=== PATIENT | female | born 1985 | race Caucasian/White ===

== ENCOUNTER 2019-08-31 20:24 | Emergency (ER) | payer SELFPAY ==
[2019-08-31 20:53] VITALS: BP 119/82; PULSE 79; RESP 16; TEMP 36.7; O2SAT 96; BMI 45.7
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
[2019-08-31 22:59] VITALS: BP 125/73; PULSE 74; RESP 16; O2SAT 93
[2019-08-31] MEDS: orphenadrine 30 mg/mL Inj 2 mL 60 MG IM (23:52)
[2019-08-31] MEDS: ketorolac 30 mg/mL INJ IM (23:52)
[2019-09-01 00:40] VITALS: BP 129/86; PULSE 82; RESP 14; O2SAT 94
[2019-09-01] MEDS: metformin 500 mg Tablet PO (00:57)
[2019-09-01 00:58] VITALS: BP 122/69; PULSE 74; RESP 14; O2SAT 94
[2019-09-01] MEDS: lisinopril 10 mg Tablet PO (00:58)
== END 2019-09-01 01:00 | disposition home or self-care (01) ==
PROVIDERS: Emergency Provider Physician Assistant
DX: M54.5 Low back pain (principal); Z87.891 Personal history of nicotine dependence
CPT/HCPCS: 96372; 99281; J1885; J2360

== ENCOUNTER 2020-04-01 22:19 | Emergency (ER) | payer SELFPAY ==
[2020-04-01 22:29] VITALS: RESP 14; TEMP 36.9; BMI 46.0
--- NOTE | 2020-04-01 23:37 | ED_ITS ---
HPI - Skin/Abscess/Foreign Bdy General: Chief complaint: Skin/Abscess/Foreign Body Stated complaint: spider bite Time Seen by Provider: 04/01/20 23:31 Source: patient Mode of arrival: ambulatory Limitations: no limitations History of Present Illness: HPI narrative: Patient comes in for a lesion to the right central buttocks. Patient reports some increase in redness and tenderness to the area. Patient appears well. Patient appears in no acute distress. Review of Systems General: Reports: 10 or more systems reviewed and unremarkable except in HPI and below Skin/Breast: Reports: erythema PFSH ED PFSH: Medical History (Updated 04/01/20 @ 23:43 by MARY Banda) Chronic back pain Social History Smoking and tobacco status: former smoker Female Reproductive History: Date of last menstrual period: 08/18/19 Physical Exam Const: COMMON NORMALS: no acute distress and patient oriented x3 GENERAL APPEARANCE: cooperative HENMT: COMMON NORMALS: normocephalic and Normal external nose present HEAD & SCALP: normal to inspection and normocephalic NOSE: Normal external nose present Eye: GENERAL EYE: appearance normal, both eyes and all related structures Neck/C-Spine: COMMON NORMALS: full ROM Lymph: LYMPHATIC: no lymphadenopathy noted Chest: COMMONS NORMALS: normal inspection of the chest Resp: COMMON NORMALS: normal respiratory effort EFFORT & INSPECTION: Yes a ble to speak in complete sentences Cardio: COMMON NORMALS: regular rate and regular rhythm RATE: regular rate RHYTHM: regular rhythm GI: COMMON NORMALS: non-tender Back/Pelvis: COMMON NORMALS: thoracic and lumbar spine normal to inspection Extremity: COMMON NORMALS: normal to inspection Neuro: COMMON NORMALS: patient oriented x3 and moves all extremities Psych: COMMON NORMALS: mental status grossly normal and cooperative Skin: NARRATIVE SKIN EXAM: Small drying lesion to the right central buttock, 4 cm area of redness around the lesion. No induration or fluctuance. Course Vital Signs: Vital signs: Vital Signs Temperature 98.4 F 04/01/20 22:29 Respiratory Rate 14 04/01/20 22:29 MDM - Skin/Abscess/Foreign Bdy MDM Narrative: Medical decision making narrative: Patient presents today with a lesion to the right central buttocks. There is a area of redness with a central lesion on the right buttock. No fluctuance or significant induration is noted. Tenderness is noted to palpation. Differential diagnosis includes but not limited to cellulitis, abscess, local reaction to insect bite. Reviewed exam with patient recommended treatment for cellulitis. Patient was started on Bactrim 1 tablet twice a day for 10 days. Reviewed post visit care and need for follow-up. Discharge Plan Discharge Patient Disposition: Home Clinical Impression: Cellulitis Qualifiers: Site of cellulitis: buttock Qualified Code(s): L03.317 - Cellulitis of buttock Condition: Stable Prescriptions: New Bactrim DS 800-160 mg tablet 1 tab PO DAILY 10 Days Qty: 20 RF: 0 No Action metformin 500 mg tablet 500 mg PO BID RF: 0 lisinopril 10 mg tablet 10 mg PO DAILY RF: 0 Robaxin-750 750 mg tablet 750 mg PO Q6H PRN (Reason: back pain) Qty: 30 RF: 0 ibuprofen 600 mg tablet 600 mg PO Q8H Qty: 30 RF: 0 Discharge Orders: Discharge Order (Routine); Ordered 04/01/20 Ordered By: Juan Moralez Discharge Diet: Usual diet Discharge Activity: Increase activity as tolerated Patient Instructions: Cellulitis (ED) Activity Restrictions/Additional Instructions: Drink plenty of water with medication. Use Tylenol or ibuprofen for pain. Follow-up with primary care in 1 week. Return to the emergency department for new concerns. Coding Level of Care Code ED Hadoop Engineer for [facility] Deluca Exam Comprehensive
[2020-04-01 23:44] VITALS: BP 125/83; PULSE 81; RESP 15; O2SAT 95
[2020-04-01] MEDS: sulfamethoxazole-trimeth DS 160-800 mg Tablet 1 TAB PO (23:49)
[2020-04-01 23:57] VITALS: BP 130/68; PULSE 72; RESP 16; O2SAT 95
== END 2020-04-02 00:01 | disposition home or self-care (01) ==
PROVIDERS: Emergency Provider Nurse Practitioner Family
DX: L03.317 Cellulitis of buttock (principal); Z87.891 Personal history of nicotine dependence
CPT/HCPCS: 12345; 99281; 99283

== ENCOUNTER → 2020-05-18 15:16 | Outpatient (BNVA) | payer OTHER, SELFPAY | PROVIDERS: Visit Provider Nurse Practitioner Family | DX: Z20.828 Contact with and (suspected) exposure to other viral communicable diseases (principal); J06.9 Acute upper respiratory infection, unspecified | CPT/HCPCS: 87635 ==

== ENCOUNTER 2020-11-09 01:16 | Emergency (ER) | payer SELFPAY ==
[2020-11-09 01:24] VITALS: BP 120/79; PULSE 89; RESP 16; TEMP 36.3; O2SAT 96; BMI 45.3
--- NOTE | 2020-11-09 01:29 | ED_ITS ---
HPI - Extremity Problem General: Chief complaint: Extremity Problem,Nontraumatic Stated complaint: pain/numbness left hand Time Seen by Provider: 11/09/20 01:28 History of Present Illness: HPI Narrative: Patient is a 35-year-old female comes to the ED with left hand pain and numbness. She reports a history of carpal tunnel. Symptoms started approximately 3 days ago. She does have a wrist brace that she just started wearing today to help with symptoms. Pain in hand rated a 7 out of 10. She reports doing a lot of repetitive hand movements at work. Denies any acute injury to cause pain in left hand. Associated symptoms: Deny chest pain, fever(s) or rash Review of Systems Const: Denies: fever(s), chills or fatigue Eyes: Denies: change in vision or eye discomfort ENMT: Denies: throat pain, odynophagia, nasal discharge or nasal congestion Card: Denies: chest pain, palpitations, edema, swelling of feet/ankles, dyspnea on exertion or orthopnea Resp: Denies: dyspnea, productive cough or non-productive cough GI: Denies: abdominal pain, nausea, vomiting, diarrhea, constipation or hematochezia : Denies: flank pain, dysuria or hematuria Musc: Reports: extremity pain (Left hand pain and numbness.); Denies: neck pain, back pain or extremity swelling Skin/Breast: Denies: rash or new lesions Neuro: Denies: headache(s), numbness in extremities or weakness in extremities PFS ED PFSH: Medical History Chronic back pain Social History Smoking and tobacco status: former smoker Female Reproductive History: Date of last menstrual period: 08/18/19 Physical Exam Const: COMMON NORMALS: no acute distress, patient oriented x3, healthy appearing and alert GENERAL APPEARANCE: cooperative and comfortable NUTRITIONAL APPEARANCE: obese HENMT: COMMON NORMALS: normocephalic HEAD & SCALP: normocephalic MOUTH: Normal oral and palatal mucosa present THROAT: posterior oropharynx normal and uvula midline Neck/C-Spine: COMMON NORMALS: supple GENERAL: Yes normal visual inspection Resp: COMMON NORMALS: normal respiratory effort, No retractions, No use of accessory muscles and clear to auscultation bilaterally AUSCULTATION: clear to auscultation bilaterally Cardio: COMMON NORMALS: regular rate, regular rhythm, S1 normal heart sound present, S2 normal heart sound present, No gallops present (Cardio), No clicks present (Cardio), No murmurs present (Cardio) and Peripheral pulses 2+ throughout RATE: regular rate RHYTHM: regular rhythm HEART SOUNDS: S1 normal heart sound present and S2 normal heart sound present PERIPHERAL PULSES: Peripheral pulses 2+ throughout GI: COMMON NORMALS: Normal to inspection, nondistended, normoactive bowel sounds present, Soft to palpation, non-tender and no masses PALPATION: Yes Soft to palpation : COMMON NORMALS: Yes no CVA tenderness BLADDER/KIDNEY EXAM: Yes no CVA tenderness Back/Pelvis: COMMON NORMALS: no CVA tenderness Extremity: GENERAL: Yes normal exam except as noted LEFT UPPER EXTREMITY: Yes wrist Left wrist: Yes special tests Left wrist special tests: Tinel's test: Positive and Phalen's test: Positive Neuro: COMMON NORMALS: patient oriented x3 and moves all extremities SENSORIUM/ORIENTATION: Yes alert Skin: GENERAL SKIN EXAM: dry skin Course Vital Signs: Vital signs: Vital Signs Temperature 97.3 F L 11/09/20 01:24 Pulse Rate 89 11/09/20 01:24 Respiratory Rate 16 11/09/20 01:24 Blood Pressure 120/79 11/09/20 01:24 Pulse Oximetry 96 11/09/20 01:24 MDM - Extremity (Nontraumatic) MDM Narrative: Medical decision making narrative: Patient is a 35-year-old female comes to the ED with left hand pain numbness. Patient has history of carpal tunnel syndrome and left hand. Exam findings remarkable for positive Phalen's and positive Tinel's test of left hand. Patient diagnosed with carpal tunnel left hand pain discharged home with a prescription for ibuprofen 800 mg. Return to ED precautions given. Follow-up with PCP in 7 to 10 days for reevaluation. Patient understood and agreed with plan. Discharge Plan Discharge Patient Disposition: Home Clinical Impression: Carpal tunnel syndrome Qualifiers: Laterality: left Qualified Code(s): G56.02 - Carpal tunnel syndrome, left upper limb Condition: Stable Prescriptions: New ibuprofen 800 mg tablet 800 mg PO Q8H PRN (Reason: pain) Qty: 30 RF: 0 No Action metformin 500 mg tablet 500 mg PO BID RF: 0 lisinopril 10 mg tablet 10 mg PO DAILY RF: 0 Discharge Orders: Discharge ED (Routine); Ordered 11/09/20 Ordered By: Chencho Montoya Discharge Diet: Regular Discharge Activity: Increase activity as tolerated Patient Instructions: Carpal Tunnel Syndrome Exercises (GEN), Carpal Tunnel Syndrome (ED) Activity Restrictions/Additional Instructions: Follow-up with medical provider as directed in 7 to 10 days for reevaluation. Take medications as prescribed. Apply cold pack on wrist to help with symptoms. Wear [id number] wrist brace throughout the day and at night when sleeping to help with symptoms as well. Return to the ER or your medical provider if condition worsens. Please read and understand discharge instructions. If any questions, please ask. Coding Level of Care Code ED Controller Repairer And Tester for Emmanuel Fwd Exam Comprehensive
[2020-11-09] MEDS: ketorolac 60 mg/2 mL INJ IM (01:46)
== END 2020-11-09 02:06 | disposition home or self-care (01) ==
PROVIDERS: Emergency Provider Physician Assistant
DX: G56.02 Carpal tunnel syndrome, left upper limb (principal); Z79.84 Long term (current) use of oral hypoglycemic drugs; Z87.891 Personal history of nicotine dependence
CPT/HCPCS: 96372; 99283; J1885

== ENCOUNTER → 2021-03-23 11:40 | Outpatient (BNVA) | payer SELFPAY | PROVIDERS: Visit Provider Nurse Practitioner Family | DX: J06.9 Acute upper respiratory infection, unspecified (principal); Z20.822 Contact with and (suspected) exposure to COVID-19 | CPT/HCPCS: 87426 ==

== ENCOUNTER 2021-05-26 22:43 | Emergency (ER) | payer MEDICAID, SELFPAY ==
[2021-05-26 22:49] VITALS: BP 143/88; PULSE 64; RESP 18; TEMP 36.9; O2SAT 97; BMI 44.8
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
[2021-05-27 00:19] VITALS: BP 116/66; PULSE 61; RESP 15; O2SAT 98
[2021-05-27] MEDS: HYDROcodone-acetaminophen 5-325 mg Tablet 1 TAB PO (00:24)
[2021-05-27 00:39] VITALS: BP 116/66; PULSE 61; RESP 15; O2SAT 98
== END 2021-05-27 00:24 | disposition home or self-care (01) ==
PROVIDERS: Emergency Provider Nurse Practitioner Family
DX: S63.502A Unspecified sprain of left wrist, initial encounter (principal); M54.5 Low back pain; Z79.84 Long term (current) use of oral hypoglycemic drugs; Z87.891 Personal history of nicotine dependence; Y04.2XXA Assault by strike against or bumped into by another person, initial encounter
CPT/HCPCS: 73110; 99283

== ENCOUNTER 2021-11-05 18:05 | Emergency (ER) | payer SELFPAY ==
[2021-11-05 18:12] VITALS: BP 123/74; PULSE 102; RESP 18; TEMP 36.8; O2SAT 98; BMI 43.9
[2021-11-05 18:27] VITALS: BP 118/74; PULSE 97; RESP 21; O2SAT 98
--- NOTE | 2021-11-05 18:30 | ECG_ITS ---
[facility] Test Date: 2021-11-05 Pat Name: Lara Clement Department: Room: Gender: Female Kiln Drawer: : 1985 Requested By: Domenic Jaquez Order Number: [id number] Gary MD: Baldo Hinojosa M.D. Measurements Intervals [place] Rate: 103 P: 57 TX: 134 QRS: 55 QRSD: 87 T: -6 QT: 335 QTc: 440 Interpretive Statements SINUS TACHYCARDIA NONSPECIFIC T-WAVE ABNORMALITY Compared to ECG 11/07/2018 06:43:30 T-wave abnormality now present Sinus rhythm no longer present Electronically Signed On 11-06-2021 15:44:51 CDT by Baldo Hinojosa M.D. [email or web address]
--- NOTE | 2021-11-05 18:30 | XRR_ITS ---
PROCEDURE INFORMATION: Exam: XR Chest Exam date and time: 11/05/2021 6:30 PM Age: 36 years old Clinical indication: Sternal or substernal pain; Additional info: Chest pain TECHNIQUE: Imaging protocol: XR of the chest. Views: 1 view. COMPARISON: CR Chest 2 views* [id number] 07/25/2019 9:24 PM FINDINGS: Lungs: Unremarkable. No consolidation. Pleural spaces: Unremarkable. No pleural effusion. No pneumothorax. Heart/Mediastinum: Unremarkable. No cardiomegaly. Bones/joints: Unremarkable. XR/XR chest 1V portable [id number] IMPRESSION: No acute findings.
[2021-11-05] MEDS: aspirin 81 mg Chew Tablet 324 MG PO (18:36)
--- NOTE | 2021-11-05 18:36 | W.ED.CHESTPA ---
HPI - Chest Pain General: Chief Complaint: Chest Pain Stated Complaint: Chest pains Time Seen by Provider: 11/05/21 18:22 Source: patient Mode of arrival: ambulatory Limitations: no limitations History of Present Illness: This patient presents to our emergency department by private vehicle because of chest discomfort. She states she has had anterior chest pain for the last 2 days. She states at times it is worse with deep breaths and certain movements. She denies any fevers or cough. She denies any sensation of shortness of breath. She states that she had some achiness in her left shoulder. She states the symptoms have been present constantly for that period of time. She states she slept well last night. She states she had a cold a couple weeks ago but has not had any recent lower or upper airway symptoms. She denies any trauma falls lifting injury etc. She is a diabetic and states her blood sugars been under good control. She occasionally smokes tobacco. No history of thromboembolic events. No risk of same. She denies any leg pain leg swelling etc. She has 4 children at home; there is no illness currently. She states that there is significant cardiovascular disease on her father side of the family. MD complaint: chest pain Timing of current episode: constant Pain location: left chest Pain radiation: left shoulder Severity: moderate Quality: aching Exacerbating factors: inspiration, palpation and movement Associated symptoms: Reports no associated symptoms; Deny abdominal pain, dyspnea, fever(s), nausea, palpitations, syncope or vomiting Treatment prior to arrival: none Related Data: On Oral Contraceptives: No Review of Systems Const: Denies: fever(s), chills or body aches Eyes: Denies: change in vision, eye discomfort, eye discharge or eye redness ENMT: Denies: throat pain, odynophagia, hoarseness or ear or mastoid pain Card: Denies: palpitations, irregular heart rhythm, syncope or dyspnea on exertion Resp: Denies: dyspnea, productive cough, non-productive cough or wheezing GI: Denies: abdominal pain, nausea, vomiting or hematemesis : Denies: flank pain, difficulty voiding, dysuria or vaginal bleeding Musc: Denies: neck pain, back pain, extremity pain or extremity swelling Skin/Breast: Denies: rash or changes in skin color Neuro: Denies: headache(s), numbness in extremities or weakness in extremities Psych: Denies: anxiety or depression Endo: Denies: polyuria Nayan/Lymph: Denies: easy bruising or easy bleeding All/Imm: Denies: urticaria or throat swelling PFSH ED PFSH: Medical History Chronic back pain Psychiatric care Social History Smoking and tobacco status: former smoker Female Reproductive History: Date of last menstrual period: 05/21/21 Physical Exam Const: COMMON NORMALS: no acute distress and patient oriented x3 GENERAL APPEARANCE: cooperative NUTRITIONAL APPEARANCE: other (Elevated BMI) ORIENTATION/CONSCIOUSNESS: Yes awake, Yes oriented to person, Yes oriented to place and Yes oriented to time HENMT: COMMON NORMALS: normocephalic, Normal nasal mucous membranes and turbinates present, moist oral mucous membranes and oropharynx normal HEAD & SCALP: normocephalic NOSE: Normal nasal mucous membranes and turbinates present Eye: COMMON NORMALS: Equal, round and reactive pupils present, EOMs intact bilaterally and no scleral icterus PUPIL: Yes Equal, round and reactive pupils present Neck/C-Spine: COMMON NORMALS: full ROM, no lymphadenopathy, supple, no JVD and Thyroid normal THYROID: Thyroid normal Chest: CHEST: Yes tenderness (Left chest, exacerbated with twisting of trunk, deep breath) Resp: COMMON NORMALS: normal respiratory effort, No retractions, No use of accessory muscles and clear to auscultation bilaterally AUSCULTATION: clear to auscultation bilaterally Cardio: COMMON NORMALS: no JVD, regular rate and Peripheral pulses 2+ throughout RATE: regular rate PERIPHERAL PULSES: Peripheral pulses 2+ throughout GI: COMMON NORMALS: Normal to inspection, nondistended, normoactive bowel sounds present, Soft to palpation, non-tender, No hepatosplenomegaly present and no masses PALPATION: Yes Soft to palpation and Yes No hepatosplenomegaly present : COMMON NORMALS: Yes no CVA tenderness BLADDER/KIDNEY EXAM: Yes no CVA tenderness Back/Pelvis: COMMON NORMALS: no CVA tenderness, thoracic and lumbar spine normal to inspection and no thoracic nor lumbar tenderness Extremity: COMMON NORMALS: normal to inspection, full ROM, capillary refill normal, no clubbing, cyanosis or edema, no calf tenderness and no pedal edema Neuro: COMMON NORMALS: patient oriented x3, moves all extremities, no focal motor deficits and no sensory deficits noted SENSORIUM/ORIENTATION: Yes oriented to person, Yes oriented to place and Yes oriented to time CRANIAL NERVES: Yes CN normal except as noted Course Reevaluation(s): Reevaluation #1: Patient's vital signs are stable. Her work-up is reassuring at this time. No new findings on reevaluation. I discussed findings with patient, their implications, follow-up and return precautions. She acknowledged our discussion. We will have her continue to monitor symptoms at home, use acetaminophen for any discomfort and return for worsening symptoms or other associated symptoms which she acknowledged. Vital Signs: Vital signs: Vital Signs Temperature 98.2 F 11/05/21 18:12 Pulse Rate 97 11/05/21 18: Respiratory Rate 21 H 11/05/21 18:27 Blood Pressure 118/74 11/05/21 18:27 Pulse Oximetry 98 11/05/21 18:27 MDM - Chest Pain Medical Decision Making Patient's chest x-ray, ancillary studies are reassuring. Particular given the patient's duration of symptoms and a negative troponin is reassuring at this time. Mitigates against ongoing ACS. I do not feel that she has any other emergent conditions that require further observation and/or admission. Symptoms are more consistent with chest wall pain given her clinical examination and negative findings. Medical Records I reviewed the patient's medical records. Lab Data I reviewed the patient's lab results. : 11/05/21 18:26 11/05/21 18:57 Radiology Impressions Chest X-Ray 11/05/21 18:30 IMPRESSION: No acute findings. Laboratory Results WBC 10.6 10^3/uL (4.0-10.0) H 11/05/21 18:26 RBC 5.36 10^6/uL (4.1-5.3) H 11/05/21 18:26 Hgb 14.7 g/dL (11.5-15.3) 11/05/21 18: Hct 42.8 % (37.0-47.0) 11/05/21 18: MCV 79.9 fl (81-99) L 11/05/21 18: MCH 27.4 pg (28.0-34.0) L 11/05/21 18: MCHC 34.3 g/dL (30.0-36.0) 11/05/21 18: RDW 13.2 % (12.1-15.1) 11/05/21 18: Plt Count 335 10^3/cmm (130-400) 11/05/21 18: MPV 9.8 fL (7.4-10.4) 11/05/21 18: Neut % (Auto) 62.3 % 11/05/21 18: Lymph % (Auto) 27.2 % 11/05/21 18: [place] % (Auto) 5.1 % 11/05/21 18: Eos % (Auto) 4.5 % 11/05/21 18: Baso % (Auto) 0.5 % 11/05/21: Neut # (Auto) 6.59 10^3/uL (1.8-7.7) 11/05/21 18: Lymph # (Auto) 2.9 10^3/uL (0.8-4.8) 11/05/21 18: [place] # (Auto) 0.5 10^3/uL (0.2-0.9) 11/05/21 18: Eos # (Auto) 0.5 10^3/uL (0.0-0.8) 11/05/21 18: Baso # (Auto) 0.1 10^3/uL (0.0-0.1) 11/05/21 18: Nucleated RBC % (auto) 0 % 11/05/21 18: Nucleated RBCs # 0.0 /100WBC 11/05/21 18: Sodium 135 mmol/L (136-145) L 11/05/21 18:57 Potassium 3.9 mmol/L (3.5-5.1) 11/05/21 18: Chloride 102 mmol/L (98-107) 11/05/21 18:57 Carbon Dioxide 21 mmol/L (22-29) L 11/05/21 18:57 Anion Gap 15.9 (5-19) 11/05/21 18:57 BUN 10 mg/dL (6-20) 11/05/21 18:57 Creatinine 0.5 mg/dL (0.5-0.9) 11/05/21 18:57 GFR Calculation 141.2 mL/min (90-130) H 11/05/21 18:57 Glucose 237 mg/dL (65-115) H 11/05/21 18:57 Calculated Osmolality 287 mOsm/kg (285-295) 11/05/21 18:57 Calcium 8.8 mg/dL (8.5-10.5) 11/05/21 18:57 Total Bilirubin 0.2 mg/dL (0.15-1.2) 11/05/21 18:57 AST 9 U/L (0-32) 11/05/21 18:57 ALT 18 U/L (0-33) 11/05/21 18:57 Alkaline Phosphatase 103 IU/L (35-105) 11/05/21 18:57 Troponin T Baseline 6 ng/L (0-10) 11/05/21 18:57 Total Protein 7.2 g/dL (6.6-8.7) 11/05/21 18:57 Albumin 3.9 g/dL (3.5-5.2) 11/05/21 18:57 Globulin 3.3 g/dL (1.3-4.6) 11/05/21 18:57 EKG Data EKG 1: EKG interpretation time: 18:25 Interpretation: She has a borderline sinus tachycardia 103 bpm. She has normal intervals, normal axis. No acute ST-T wave changes noted. No prior tracings available for review. Discharge Plan Discharge Patient Disposition: Home Clinical Impression: Chest pain Condition: Stable Prescriptions: No Action citalopram [Celexa] 20 mg tablet 30 mg PO DAILY 0RF metformin 500 mg tablet 500 mg PO BID 0RF lisinopril 10 mg tablet 10 mg PO DAILY 0RF ibuprofen 800 mg tablet 800 mg PO Q8H PRN (Reason: pain) Qty: 30 0RF hydrocodone-acetaminophen 5-325 mg tablet 1 tab PO Q6H PRN (Reason: pain) Qty: 7 0RF Discharge Orders: Discharge ED (Routine); Ordered 11/05/21 Ordered By: Domenic Jaquez Discharge Diet: Usual diet and Diabetic Discharge Activity: Resume usual activity Patient Instructions: Opioid Safety Activity Restrictions/Additional Instructions: You may use [id number] acetaminophen for pain control. Continue all your other usual prescribed medications. If your symptoms continue, new symptoms develop or you have associated difficulty breathing, leg swelling, fevers etc. return to this or the nearest emergency department for reevaluation. Do not smoke cigarettes. Coding Level of Care Code ED Theology Teacher for Chg Fwd Exam Comprehensive
[2021-11-05 18:45] LABS: Basophils # 0.1 10^3/uL (0.0-0.1); Basophils % 0.5 %; Eosinophils # 0.5 10^3/uL (0.0-0.8); Eosinophils % 4.5 %; Hematocrit 42.8 % (37.0-47.0); Hemoglobin 14.7 g/dL (11.5-15.3); Lymphocytes # 2.9 10^3/uL (0.8-4.8); Lymphocytes % 27.2 %; Mean Corpuscular HGB Conc 34.3 g/dL (30.0-36.0); Mean Corpuscular Hemoglobin 27.4 pg (28.0-34.0); Mean Corpuscular Volume 79.9 fl (81-99); Mean Platelet Volume 9.8 fL (7.4-10.4); Monocytes # 0.5 10^3/uL (0.2-0.9); Monocytes % 5.1 %; Neutrophils # 6.59 10^3/uL (1.8-7.7); Neutrophils % 62.3 %; Nucleated Red Blood Cells % 0 %; Platelet Count 335 10^3/cmm (130-400); Red Blood Count 5.36 10^6/uL (4.1-5.3); Red Cell Distribution Width 13.2 % (12.1-15.1); White Blood Count 10.6 10^3/uL (4.0-10.0)
--- NOTE | 2021-11-05 19:07 | PC.NURSE ---
report received, patient on stretcher respirations even equal and unlabored. NAD
[2021-11-05 19:27] LABS: Troponin(5th) Baseline 6 ng/L (0-10)
[2021-11-05 19:29] LABS: Alanine Aminotransferase 18 U/L (0-33); Albumin Level 3.9 g/dL (3.5-5.2); Alkaline Phosphatase 103 IU/L (35-105); Anion Gap 15.9 (5-19); Aspartate Amino Transferase 9 U/L (0-32); Blood Urea Nitrogen 10 mg/dL (6-20); Calcium 8.8 mg/dL (8.5-10.5); Carbon Dioxide 21 mmol/L (22-29); Chloride 102 mmol/L (98-107); Globulin 3.3 g/dL (1.3-4.6); Glomerular Filtration Rate 141.2 mL/min (90-130); Glucose 237 mg/dL (65-115); Osmolality Calculated 287 mOsm/kg (285-295); Potassium 3.9 mmol/L (3.5-5.1); Sodium 135 mmol/L (136-145); Total Bilirubin 0.2 mg/dL (0.15-1.2); Total Protein 7.2 g/dL (6.6-8.7)
[2021-11-05 19:49] VITALS: BP 109/76; PULSE 76; RESP 18; TEMP 36.6; O2SAT 98
== END 2021-11-05 19:50 | disposition home or self-care (01) ==
PROVIDERS: Emergency Provider Emergency Medicine
DX: R07.9 Chest pain, unspecified (principal); Z79.84 Long term (current) use of oral hypoglycemic drugs; Z87.891 Personal history of nicotine dependence
CPT/HCPCS: 36415; 71045; 80053; 84484; 85025; 93005; 99284

== ENCOUNTER 2022-01-14 20:07 | Emergency (ER) | payer OTHER, SELFPAY ==
--- NOTE | 2022-01-14 20:13 | XRR_ITS ---
PROCEDURE INFORMATION: Exam: XR Left Knee Exam date and time: 01/14/2022 9:12 PM Age: 36 years old Clinical indication: Pain; Knee; Left; Additional info: Injury TECHNIQUE: Imaging protocol: XR Left knee. Views: 3 views. COMPARISON: No relevant prior studies available. FINDINGS: Bones/joints: No acute fracture dislocation or obvious joint effusion. Soft tissues: Normal. Other findings: Three nonweightbearing views submitted, with suboptimal positioning. XR/XR knee LT 3V* [id number] IMPRESSION: No acute findings.
[2022-01-14 20:41] VITALS: BP 134/86; PULSE 92; RESP 20; TEMP 36.4; O2SAT 97
--- NOTE | 2022-01-14 21:03 | W.ED.EXTPRO ---
HPI - Extremity Problem General: Chief complaint: Extremity Injury, Lower Stated complaint: Lt Knee Pain Time Seen by Provider: 01/14/22 20:49 Source: patient Mode of arrival: ambulatory Limitations: no limitations History of Present Illness: 36-year-old female states she was dancing 2 days ago and did a jump landed on her left leg and felt a pop in her left knee and has had knee pain since then. She states its much worse with walking improved with rest her pain currently is a 4 out of 10 no history of any knee injuries in the past denies any ankle or hip pain. Associated symptoms: Deny chest pain, fever(s) or rash Review of Systems Const: Denies: fever(s), chills, body aches or change in appetite Eyes: Denies: blurry vision or eye discomfort ENMT: Denies: throat pain or dental pain Card: Denies: chest pain Resp: Denies: dyspnea GI: Denies: abdominal pain, nausea, vomiting or diarrhea : Denies: dysuria Musc: Reports: extremity pain Skin/Breast: Denies: rash Neuro: Denies: headache(s) Psych: Denies: depression Nayan/Lymph: Denies: easy bruising All/Imm: Denies: urticaria PFSH ED PFSH: Medical History Chronic back pain Psychiatric care Social History Smoking and tobacco status: former smoker Female Reproductive History: Date of last menstrual period: 05/21/21 Physical Exam Const: COMMON NORMALS: no acute distress, patient oriented x3 and healthy appearing HENMT: COMMON NORMALS: normocephalic and atraumatic HEAD & SCALP: normocephalic and atraumatic Eye: COMMON NORMALS: Equal, round and reactive pupils present and EOMs intact bilaterally PUPIL: Yes Equal, round and reactive pupils present Neck/C-Spine: COMMON NORMALS: full ROM and supple Chest: COMMONS NORMALS: normal inspection of the chest Resp: COMMON NORMALS: normal respiratory effort Cardio: COMMON NORMALS: regular rate, regular rhythm and No murmurs present (Cardio) RATE: regular rate RHYTHM: regular rhythm GI: INSPECTION: Yes normal to inspection Extremity: NARRATIVE EXTREMITY EXAM: Tenderness over left knee pain with range of motion that is minimal slight swelling distal pulses sensation intact no obvious deformity Neuro: COMMON NORMALS: patient oriented x3, moves all extremities and no focal motor deficits Psych: COMMON NORMALS: mental status grossly normal, Normal thought process present and cooperative THOUGHT PROCESS: Normal thought process present Skin: COMMON NORMALS: no rashes or lesions noted and no wounds GENERAL SKIN EXAM: no rashes or lesions noted Course Vital Signs: Vital signs: Vital Signs Temperature 97.6 F 01/14/22 20:41 Pulse Rate 92 01/14/22 20:41 Respiratory Rate 20 H 01/14/22 20:41 Blood Pressure 134/86 01/14/22 20:41 Pulse Oximetry 97 01/14/22 20:41 MDM - Extremity (Nontraumatic) Medical Decision Making Patient presents here with a knee sprain placed in a immobilizer and is to use crutches and weight-bear as tolerated we will get her follow-up with orthopedics place her on anti-inflammatories. Discharge Plan Discharge Patient Disposition: Home Clinical Impression: Left knee sprain Qualifiers: Encounter type: initial encounter Involved ligament of knee: unspecified ligament Qualified Code(s): S83.92XA - Sprain of unspecified site of left knee, initial encounter Condition: Stable Prescriptions: No Action citalopram [Celexa] 20 mg tablet 30 mg PO DAILY 0RF metformin 500 mg tablet 500 mg PO BID 0RF lisinopril 10 mg tablet 10 mg PO DAILY 0RF ibuprofen 800 mg tablet 800 mg PO Q8H PRN (Reason: pain) Qty: 30 0RF hydrocodone-acetaminophen 5-325 mg tablet 1 tab PO Q6H PRN (Reason: pain) Qty: 7 0RF Discharge Orders: Discharge ED (Routine); Ordered 01/14/22 Ordered By: Antwan Ramirez Referrals: Cortes Morales DO [Physician] - 1-3 days Discharge Diet: Advance as tolerated Discharge Activity: Resume usual activity Patient Instructions: Knee Sprain (ED) Coding Level of Care Code ED Sales Engineer Account Manager for Emmanuel [facility] Exam Comprehensive
[2022-01-14] MEDS: acetaminophen 325 mg Tablet 650 MG PO (21:17)
--- NOTE | 2022-01-17 10:20 | DCPLANNER ---
Addendum entered by Rehana Tripp 04/18/22 14:27: Patient had a follow up appointment scheduled with ortho - patient did attend appointment. Addendum entered by Rehana Tripp 01/19/22 14:11: Patient has a follow up appointment scheduled for Wednesday, November 24, 2021 at 8:30 with Stewart at ortho. Clinic will call patient with appointment information. Original Note: manager wind had message to schedule a followup appointment for patient with ortho. manager wind sent patients information to the front office staff at ortho. Patients information will be printed and reviewed. Clinic will call patient with appointment information.
== END 2022-01-14 21:42 | disposition home or self-care (01) ==
PROVIDERS: Emergency Provider Emergency Medicine
DX: S83.92XA Sprain of unspecified site of left knee, initial encounter (principal); X58.XXXA Exposure to other specified factors, initial encounter
CPT/HCPCS: 29530; 73562; 99283

== ENCOUNTER → 2022-01-24 08:58 | Outpatient (BNVA) | payer OTHER, SELFPAY | PROVIDERS: Referring Provider Emergency Medicine; Visit Provider Nurse Practitioner Family | DX: S83.232A Complex tear of medial meniscus, current injury, left knee, initial encounter (principal); X58.XXXA Exposure to other specified factors, initial encounter | CPT/HCPCS: 73560; 73565 ==

== ENCOUNTER 2022-01-24 13:28 | Outpatient (CLI) | payer OTHER, SELFPAY | END 2022-01-24 13:29 | disposition home or self-care (01) | LOC: SPT 13:34 | PROVIDERS: Visit Provider Nurse Practitioner Family | DX: Z46.89 Encounter for fitting and adjustment of other specified devices (principal); M25.562 Pain in left knee | CPT/HCPCS: 97760; L1812 ==

== ENCOUNTER 2022-03-15 10:48 | Outpatient (CLI) | payer OTHER, SELFPAY ==
--- NOTE | 2022-03-15 11:00 | MR_ITS ---
WS: [id number] MRI LEFT KNEE HISTORY: knee pain COMPARISON: 01/14/2022 Anterior cruciate ligament: Normal intact ACL is not identified. Suspicious for complete tear. Posterior cruciate ligament: Intact with mild posterior buckling. Medial collateral ligament: Intact. Posterior lateral corner structures: Intact. Medial menisci: Complex tear posterior horn. There is abnormal signal throughout a large portion of t he meniscus. There is a tear extending to the inferior articular surface and an additional tear exten ding towards the root. Lateral meniscus: Intact. Normal signal, size and shape. Extensor mechanism: Distal quadriceps tendon and patellar tendons are intact. Fluid and soft tissue: Very small joint effusion. No Santacruz's cyst. Osseous and articular structures: Patellofemoral compartment: Normal. Medial compartment: No significant narrowing of the joint space. No edema. Cartilage is intact. Lateral compartment: No significant joint space narrowing. No fracture or marrow edema. Intact cartil age. Tiny amount of marrow edema in the superior fibular head. MR/MR knee LT wo con* [id number] IMPRESSION: 1. ACL is not identified. Findings consistent with a complete ACL tear. 2. Complex tear involving the posterior horn of the medial meniscus involving the inferior articular surface and also the peripheral third of the meniscus to wards the meniscal root. 3. Small amount of marrow edema in the superior fibular head.
== END 2022-03-15 10:49 | disposition home or self-care (01) ==
PROVIDERS: Visit Provider Nurse Practitioner Family
DX: S83.232A Complex tear of medial meniscus, current injury, left knee, initial encounter (principal); X58.XXXA Exposure to other specified factors, initial encounter
CPT/HCPCS: 73721

== ENCOUNTER 2022-03-24 22:40 | Emergency (ER) | payer OTHER, SELFPAY ==
[2022-03-24 22:54] VITALS: BP 122/79; PULSE 91; RESP 18; TEMP 36.8; O2SAT 96; BMI 46.6
--- NOTE | 2022-03-24 23:30 | W.ED.EAR ---
HPI - Ear Problem General: Chief complaint: Ear Stated complaint: left ear pain Time Seen by Provider: 03/24/22 23:07 Source: patient Mode of arrival: ambulatory Limitations: no limitations History of Present Illness: Patient is a 36-year-old female who presents to ED today with a complaint of left ear pain and drainage. States she has noticed symptoms over the past 1 to 2 days. Today she noticed green drainage from the ear. Patient states she does have a history of ear infections to the ear. No bloody discharge. She denies hearing loss or tinnitus. No headache. MD Complaint: ear pain and ear discharge Location: left ear Duration: constant Relieving factors: nothing Exacerbating factors: nothing Discharge from ear: yes - clear and yes - purulent Associated symptoms: Reports ear or mastoid pain; Denies fever(s), headache(s), neck pain or tinnitus Treatment prior to arrival: none Review of Systems Const: Denies: fever(s), chills, body aches, fatigue or malaise Eyes: Denies: change in vision, blurry vision, photophobia or eye discomfort ENMT: Reports: ear or mastoid pain and ear discharge; Denies: throat pain, odynophagia, change in hearing, tinnitus, disequilibrium, nasal discharge, nasal congestion, post nasal drip or sinus pain Card: Denies: chest pain Resp: Denies: dyspnea GI: Denies: nausea or vomiting Musc: Denies: neck pain Skin/Breast: Denies: rash Neuro: Denies: headache(s) PFSH ED PFSH: Medical History Chronic back pain Psychiatric care Social History Smoking and tobacco status: former smoker Female Reproductive History: Date of last menstrual period: 05/21/21 Physical Exam Const: COMMON NORMALS: no acute distress, patient oriented x3, no limitations and alert GENERAL APPEARANCE: cooperative HENMT: COMMON NORMALS: normocephalic, atraumatic, hearing grossly normal bilaterally, external ears normal and Normal external nose present HEAD & SCALP: normal to inspection, normocephalic and atraumatic FACE & SINUS: normal facial exam NOSE: Normal external nose present EXTERNAL EAR: Yes external ears normal EXTERNAL AUDITORY CANAL: Abnormal EAC present EAC laterality: left Details: erythema, edema and otic discharge TYMPANIC MEMBRANE: TM normal on the right and TM abnormal TM laterality: left Details: bulging, dull, erythematous and loss of landmarks Neck/C-Spine: COMMON NORMALS: no lymphadenopathy Neuro: JARED COMA SCALE: document GCS findings Jared coma scale eye opening: Spontaneous [place] coma scale verbal response: Orientated [place] coma scale motor response: Obey commands [place] coma scale total score: 15 COMMON NORMALS: patient oriented x3 and CN's II-XII intact bilaterally SENSORIUM/ORIENTATION: Yes alert Course Vital Signs: Vital signs: Vital Signs Temperature 98.3 F 03/24/22 22:54 Pulse Rate 91 03/24/22 22:54 Respiratory Rate 18 03/24/22 22:54 Blood Pressure 122/79 03/24/22 22:54 Pulse Oximetry 96 03/24/22 22:54 Oxygen Delivery Me thod 03/24/22 22:54 MDM - Ear Medical Decision Making Recommend follow up with PCP in 3-5 days if she does not seem to be improving. Discharge Plan Discharge Patient Disposition: Home Clinical Impression: Otitis media Qualifiers: Otitis media type: suppurative Chronicity: acute Laterality: left Recurrence: non-recurrent Spontaneous tympanic membrane rupture: without spontaneous rupture Qualified Code(s): H66.002 - Acute suppurative otitis media without spontaneous rupture of ear drum, left ear Otitis externa Qualifiers: Otitis externa type: unspecified type Chronicity: acute Laterality: left Qualified Code(s): H60.502 - Unspecified acute noninfective otitis externa, left ear Condition: Stable Prescriptions: New [id number] 3.5-10,000-1 mg/mL-unit/mL-% solution 3 drp otic (ear) Q8H 7 Days Qty: 10 0RF amoxicillin-pot clavulanate 875-125 mg tablet 1 tab PO BID Qty: 14 0RF No Action citalopram [Celexa] 20 mg tablet 30 mg PO DAILY (DME) Hinge Knee brace See Rx Instructions .Route .MEDSUPPLY Qty: 1 0RF Rx Instructions: As directed metformin 500 mg tablet 500 mg PO BID lisinopril 10 mg tablet 10 mg PO DAILY ibuprofen 800 mg tablet 800 mg PO Q8H PRN (Reason: pain) Qty: 30 0RF hydrocodone-acetaminophen 5-325 mg tablet 1 tab PO Q6H PRN (Reason: pain) Qty: 7 0RF Discharge Orders: Discharge ED (Routine); Ordered 03/24/22 Ordered By: Lorrie Barriga Coding Level of Care Code ED Medical Numerical Control Operator for Emmanuel Deluca
== END 2022-03-24 23:45 | disposition home or self-care (01) ==
PROVIDERS: Emergency Provider Physician Assistant
DX: H66.002 Acute suppurative otitis media without spontaneous rupture of ear drum, left ear (principal); H60.502 Unspecified acute noninfective otitis externa, left ear; Z79.84 Long term (current) use of oral hypoglycemic drugs; Z87.891 Personal history of nicotine dependence
CPT/HCPCS: 99284

== ENCOUNTER 2022-10-21 23:09 | Emergency (ER) | payer OTHER, SELFPAY ==
[2022-10-21 23:13] VITALS: BP 127/77; PULSE 99; RESP 22; TEMP 36.8; O2SAT 94; BMI 40.2
--- NOTE | 2022-10-22 00:06 | XRR_ITS ---
PROCEDURE INFORMATION: Exam: XR Chest Exam date and time: 10/22/2022 1:02 AM Age: 37 years old Clinical indication: Cough TECHNIQUE: Imaging protocol: Radiologic exam of the chest. Views: 1 view. COMPARISON: CR XR chest 1V portable [id number] 11/05/2021 6:48 PM FINDINGS: Lungs: The lungs are clear. Pleural spaces: Unremarkable. No pleural effusion. No pneumothorax. Heart/Mediastinum: Unremarkable. No cardiomegaly. Bones/joints: Unremarkable. XR/XR chest 1V portable [id number] IMPRESSION: No acute cardiopulmonary abnormality.
[2022-10-22 02:55] LABS: Influenza A by IFA negative (Negative); Influenza B by IFA negative (Negative)
[2022-10-22] MEDS: azithromycin 250 mg Tablet 500 MG PO (03:07)
[2022-10-22] MEDS: guaiFENesin-codeine UDC 10 mL PO (03:07)
[2022-10-22] MEDS: dexamethasone 4 mg Tablet 10 MG PO (03:07)
[2022-10-22 03:13] VITALS: BP 130/79; PULSE 110; RESP 18; O2SAT 96
--- NOTE | 2022-10-22 17:23 | ED_ITS ---
HPI - URI/Sore Throat General: Chief Complaint: Upper Respiratory Infection Stated Complaint: cough Time Seen by Provider: 10/22/22 02:34 Source: patient History of Present Illness: 37 yo female with a history of DM type II presenting with 2 weeks of unrelenting cough. No sputum. No fever. Mild sob. She has tried OTC medications for cold and flu/cough without improvement. MD elicited complaint: cough and nasal congestion Pertinent past history: other Onset (ago): week(s) (2) Consistency: constant and progressively worsening Severity: moderate Description of mucous: clear Able to tolerate fluids by mouth: Yes Exacerbating factors: speaking and deep breaths Relieving factors: nothing Associated symptoms: Reports congestion, cough, rhinorrhea and short of breath; Deny abdominal pain, chills, chest pain, diarrhea, fever(s), stiffness, sore throat or vomiting Treatments prior to arrival: acetaminophen, ibuprofen and cold medicine Review of Systems Const: Denies: fever(s) or chills Eyes: Denies: change in vision ENMT: Denies: throat pain or uvular edema Card: Denies: chest pain Resp: Reports: dyspnea, non-productive cough, wheezing and chest congestion GI: Denies: abdominal pain, vomiting or diarrhea Musc: Denies: neck pain PFSH ED PFSH: Medical History Chronic back pain Psychiatric care Social History Smoking and tobacco status: current every day smoker Physical Exam Const: COMMON NORMALS: no acute distress GENERAL APPEARANCE: cooperative; not ill appearing and not frail appearing HENMT: COMMON NORMALS: normocephalic, atraumatic and Normal external nose present HEAD & SCALP: normocephalic and atraumatic FACE & SINUS: normal facial exam and face symmetric NOSE: Normal external nose present THROAT: no uvular edema Eye: COMMON NORMALS: Equal, round and reactive pupils present and EOMs intact bilaterally PUPIL: Yes Equal, round and reactive pupils present Neck/C-Spine: GENERAL: Yes trachea midline Chest: CHEST: Yes Symmetrical chest wall rise Resp: COMMON NORMALS: normal respiratory effort, No retractions, No use of accessory muscles and clear to auscultation bilaterally AUSCULTATION: clear to auscultation bilaterally Cardio: COMMON NORMALS: regular rate and regular rhythm RATE: regular rate RHYTHM: regular rhythm GI: COMMON NORMALS: Normal to inspection, nondistended, normoactive bowel sounds present Extremity: COMMON NORMALS: no pedal edema Neuro: JARED COMA SCALE: document GCS findings [place] coma scale eye opening: Spontaneous [place] coma scale verbal response: Orientated Jraed coma scale motor response: Obey commands [place] coma scale total score: 15 SENSORY EXAM: Yes extremities (intact) Psych: COMMON NORMALS: speech normal SPEECH: Yes normal speech Skin: COMMON NORMALS: no rashes or lesions noted GENERAL SKIN EXAM: no rashes or lesions noted Course Vital Signs: Vital signs: Vital Signs Temperature 98.3 F 10/21/22 23:13 Pulse Rate 110 H 10/22/22 03:13 Respiratory Rate 18 10/22/22 03:13 Blood Pressure 130/79 10/22/22 03:13 Pulse Oximetry 96 10/22/22 03:13 Oxygen Delivery Me thod 10/21/22 23:13 MDM - URI/Sore Throat Medical Decision Making 2 weeks of cough. CXR is neg. with prolonged symptoms atypical bacterial infection risk increases. will rx with abx, cough medication with codeine and albuterol. one dose of decadron here. to return if worsening. Lab Data Radiology Impressions Chest X-Ray 10/22/22 00:06 IMPRESSION: No acute cardiopulmonary abnormality. Laboratory Results Influenza Type A Ag negative (Negative) 10/22/22 02:32 Influenza Type B Ag negative (Negative) 10/22/22 02:32 Discharge Plan Discharge Patient Disposition: Home Clinical Impression: Bronchitis Condition: Stable Prescriptions: New Zithromax 250 mg tablet See Rx Instructions .ROUTE .COMPLEX Qty: 6 0RF Rx Instructions: For 250 mg dose pack: take 500 mg today (day 1), then 250 mg for 4 days (days 2-5) codeine-guaifenesin 10-100 mg/5 mL liquid 5 ml PO Q6H PRN (Reason: cough) Qty: 120 0RF albuterol sulfate 90 mcg/actuation HFA aerosol inhaler 2 inh INHALATION Q4H PRN (Reason: shortness of breath or wheezing) Qty: 6.7 1RF No Action citalopram [Celexa] 20 mg tablet 30 mg PO DAILY (DME) Hinge Knee brace See Rx Instructions .Route .MEDSUPPLY Qty: 1 0RF Rx Instructions: As directed metformin 500 mg tablet 500 mg PO BID lisinopril 10 mg tablet 10 mg PO DAILY ibuprofen 800 mg tablet 800 mg PO Q8H PRN (Reason: pain) Qty: 30 0RF Discharge Orders: Discharge ED (Routine); Ordered 10/22/22 Ordered By: Jeremy Al Referrals: Ulises Pierce MD [Primary Care Provider] - Patient Instructions: Acute Bronchitis (ED), Opioid Safety, Pain Management Activity Restrictions/Additional Instructions: Use your inhaler every 4 hours while awake for the next 48 hours, then as needed. Prescription cough syrup as needed for cough. It will make you tired and may impair your ability to drive a car or operate machinery. Antibiotics as directed. Return for fever, worsening shortness of breath, worsening chest discomfort, other concerning symptoms. Coding Level of Care Code ED Reagent Tender for Emmaneul Deluca
== END 2022-10-22 03:15 | disposition home or self-care (01) ==
PROVIDERS: Physician Assistant; Emergency Provider Emergency Medicine; PCP Hospitalist
DX: J40 Bronchitis, not specified as acute or chronic (principal); Z79.84 Long term (current) use of oral hypoglycemic drugs; F17.210 Nicotine dependence, cigarettes, uncomplicated
CPT/HCPCS: 71045; 87804; 99283; J8540; Q0144

== ENCOUNTER 2022-12-04 20:26 | Emergency (ER) | payer OTHER, SELFPAY ==
[2022-12-04 20:32] VITALS: BP 149/93; PULSE 84; RESP 18; TEMP 36.6; O2SAT 96; BMI 40.2
--- NOTE | 2022-12-04 20:36 | W.ED.DENTAL ---
HPI - Dental/Oral General: Chief complaint: Dental/Oral Stated complaint: ToothAche Time Seen by Provider: 12/04/22 20:28 Source: patient Mode of arrival: ambulatory Limitations: no limitations History of Present Illness: 37-year-old female states she been having left lower molar pain for the last 3 days. States pain is sharp in nature rates it a 6 out of 10 she had no difficulty swallowing denies any fever she denies any worsening proving factors. States she is also noticed some very fine rash to bilateral forearms Associated symptoms: Denies fever(s) Review of Systems Const: Denies: fever(s), chills, body aches or change in appetite Eyes: Denies: blurry vision or eye discomfort ENMT: Reports: dental pain Card: Denies: chest pain Resp: Denies: dyspnea GI: Denies: abdominal pain, nausea, vomiting or diarrhea : Denies: dysuria Musc: Denies: neck pain or back pain Skin/Breast: Reports: rash Neuro: Denies: headache(s) Psych: Denies: depression Nayan/Lymph: Denies: easy bruising All/Imm: Denies: urticaria PFSH ED PFSH: Medical History Chronic back pain Psychiatric care Social History Smoking and tobacco status: current every day smoker Female Reproductive History: Date of last menstrual period: 11/29/22 Physical Exam Const: COMMON NORMALS: no acute distress and patient oriented x3 HENMT: COMMON NORMALS: normocephalic HEAD & SCALP: normocephalic OTHER: Poor dentition with multiple dental caries tenderness over left lower molar no abscess or trismus Eye: COMMON NORMALS: conjunctivae normal CONJUNCTIVA: Yes conjunctivae normal Neck/C-Spine: COMMON NORMALS: supple Chest: COMMONS NORMALS: normal inspection of the chest Resp: COMMON NORMALS: normal respiratory effort Cardio: COMMON NORMALS: regular rate RATE: regular rate GI: INSPECTION: Yes normal to inspection Extremity: COMMON NORMALS: normal to inspection Neuro: COMMON NORMALS: patient oriented x3 Psych: COMMON NORMALS: mental status grossly normal Skin: NARRATIVE SKIN EXAM: Very mild rash with dry skin to bilateral arms Course Vital Signs: Vital signs: Vital Signs Temperature 97.8 F 12/04/22 20:32 Pulse Rate 84 12/04/22 20:32 Respiratory Rate 18 12/04/22 20:32 Blood Pressure 149/93 12/04/22 20:32 Pulse Oximetry 96 12/04/22 20:32 Oxygen Delivery Me thod 12/04/22 20:32 MDM - Dental/Oral Medical Decision Making Patient presents here with dental pain left lower molar no signs of abscess no signs of trismus we will place her on Keflex she is to follow-up with a dentist she has a mild rash to her bilateral forearms appears to be dry skin informed to use some cortisone cream along with a nonscented lotion she is to return if worsening. Discharge Plan Discharge Patient Disposition: Home Clinical Impression: Toothache, Dental caries Condition: Stable Prescriptions: New cephalexin 500 mg capsule 500 mg PO TID 7 Days Qty: 21 0RF No Action citalopram [Celexa] 20 mg tablet 30 mg PO DAILY (DME) Hinge Knee brace See Rx Instructions .Route .MEDSUPPLY Qty: 1 0RF Rx Instructions: As directed metformin 500 mg tablet 500 mg PO BID lisinopril 10 mg tablet 10 mg PO DAILY ibuprofen 800 mg tablet 800 mg PO Q8H PRN (Reason: pain) Qty: 30 0RF Zithromax 250 mg tablet See Rx Instructions .ROUTE .COMPLEX Qty: 6 0RF Rx Instructions: For 250 mg dose pack: take 500 mg today (day 1), then 250 mg for 4 days (days 2-5) codeine-guaifenesin 10-100 mg/5 mL liquid 5 ml PO Q6H PRN (Reason: cough) Qty: 120 0RF albuterol sulfate 90 mcg/actuation HFA aerosol inhaler 2 inh INHALATION Q4H PRN (Reason: shortness of breath or wheezing) Qty: 6.7 1RF Discharge Orders: Discharge ED (Routine); Ordered 12/04/22 Ordered By: Antwan Ramirez Referrals: Hosea Molina MD [Primary Care Provider] - Discharge Diet: Advance as tolerated Discharge Activity: Resume usual activity Patient Instructions: Toothache (ED) Coding Level of Care Code ED Visual Display Associate for Emmanuel Deluca
[2022-12-04 20:39] VITALS: BP 149/93; PULSE 90; RESP 16; O2SAT 94
[2022-12-04 20:45] VITALS: BP 128/98; PULSE 90; RESP 16; O2SAT 97
[2022-12-04] MEDS: HYDROcodone-acetaminophen 5-325 mg Tablet 1 TAB PO (20:45)
[2022-12-04] MEDS: cephALEXin 500 mg Capsule PO (20:45)
== END 2022-12-04 20:47 | disposition home or self-care (01) ==
PROVIDERS: Emergency Provider Emergency Medicine; PCP Family Medicine
DX: K02.9 Dental caries, unspecified (principal)
CPT/HCPCS: 99283

== ENCOUNTER 2023-03-29 01:32 | Emergency (ER) | payer OTHER, SELFPAY ==
[2023-03-29] VITALS (8 sets, daily range): BP systolic 115–137; BP diastolic 66–94; PULSE 71–94; RESP 16–29; TEMP 36.5; O2SAT 96–97; BMI 43.9
--- NOTE | 2023-03-29 01:33 | XRR_ITS ---
PROCEDURE INFORMATION: Exam: XR Chest Exam date and time: 03/29/2023 2:14 AM Age: 37 years old Clinical indication: Pain; Left-sided; Additional info: Cp TECHNIQUE: Imaging protocol: Radiologic exam of the chest. Views: 1 view. COMPARISON: CR XR chest 1V portable [id number] 10/22/2022 1:02 AM FINDINGS: Lungs: No CHF/pulmonary edema. Poor inspiration somewhat limits evaluation, especially of the lung bases. Visible lungs appear essentially clear. Pleural spaces: No visible pneumothorax. No definite pleural fluid. Heart/Mediastinum: Heart size is within normal limits. Bones/joints: No significant acute finding. XR/XR chest 1V portable [id number] IMPRESSION: 1. No definite pneumonia or CHF. 2. Other findings discussed above.
--- NOTE | 2023-03-29 01:33 | ECG_ITS ---
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 Measurements Intervals [place] Rate: 91 P: 43 VT: 149 QRS: 30 QRSD: 91 T: 20 QT: 355 QTc: 438 Interpretive Statements SINUS RHYTHM LOW QRS VOLTAGE IN PRECORDIAL LEADS [QRS DEFLECTION < 1.0 mV IN CHEST LEADS] Compared to ECG 11/05/2021 18:19:35 Low QRS voltage now present Sinus tachycardia no longer present T-wave abnormality no longer present Electronically Signed On 03-29-2023 16:03:13 CDT by Baldo Hinojosa M.D. [id number]
[2023-03-29 02:32] LABS: Basophils # 0.1 10^3/uL (0.0-0.1); Basophils % 0.5 %; Eosinophils # 0.3 10^3/uL (0.0-0.8); Hematocrit 37.7 % (37.0-47.0); Lymphocytes # 2.9 10^3/uL (0.8-4.8); Lymphocytes % 28.4 %; Mean Corpuscular HGB Conc 37.1 g/dL (30.0-36.0); Mean Corpuscular Hemoglobin 28.2 pg (28.0-34.0); Mean Platelet Volume 9.6 fL (7.4-10.4); Monocytes # 0.6 10^3/uL (0.2-0.9); Monocytes % 5.6 %; Neutrophils # 6.36 10^3/uL (1.8-7.7); Nucleated Red Blood Cells % 0 %; Platelet Count 327 10^3/cmm (130-400); Red Blood Count 4.96 10^6/uL (4.1-5.3); Red Cell Distribution Width 12.6 % (12.1-15.1); White Blood Count 10.3 10^3/uL (4.0-10.0)
[2023-03-29 02:48] LABS: Alanine Aminotransferase 20 U/L (0-33); Albumin Level 4.1 g/dL (3.5-5.2); Alkaline Phosphatase 117 U/L (35-105); Anion Gap 17.1 (5-19); Aspartate Amino Transferase 15 U/L (0-32); Blood Urea Nitrogen 13 mg/dL (6-20); Calcium 9.4 mg/dL (8.5-10.5); Carbon Dioxide 25 mmol/L (22-29); Chloride 96 mmol/L (98-107); Globulin 2.4 g/dL (1.3-4.6); Glomerular Filtration Rate 95.2 mL/min (90-130); Glucose 356 mg/dL (65-115); Lipase 69 U/L (13-60); Osmolality Calculated 292 mOsm/kg (285-295); Potassium 4.1 mmol/L (3.5-5.1); Sodium 134 mmol/L (136-145); Total Bilirubin 0.2 mg/dL (0.15-1.2); Total Protein 6.5 g/dL (6.6-8.7)
--- NOTE | 2023-03-29 02:50 | W.ED.CHESTPA ---
HPI - Chest Pain General: Chief Complaint: Chest Pain Stated Complaint: left side pain, chest pain Time Seen by Provider: 03/29/23 01:56 History of Present Illness: Patient is a 37-year-old female comes to the ED with chest pain. Symptoms started initially at 4 PM when she was driving home from work. Chest pain was on the left side and she states that she has been having chest pain like this over the past several years. She rates the pain currently an 8 out of 10. Around 6 PM tonight she was laying down and developed shooting pains that started in her left arm and then started shooting down from left side of her chest into the left side of her abdomen and left leg. She also endorses having some left lower back pain as well. Denies any shortness of breath, fevers, chills, nausea/vomiting, abdominal pain, vaginal bleeding, bladder or bowel symptoms. Patient has a history of anxiety and panic attacks and states her chest pain feels nothing like her past panic attacks. Patient states she has a history of type 2 diabetes and was supposed to be on metformin and Trulicity but has stopped taking both for several months now. Associated symptoms: Deny abdominal pain, dyspnea, fever(s), nausea, palpitations or vomiting Review of Systems Const: Denies: fever(s), chills or fatigue Eyes: Denies: change in vision or eye discomfort ENMT: Denies: throat pain, odynophagia, nasal discharge or nasal congestion Card: Reports: chest pain; Denies: palpitations, edema, swelling of feet/ankles, dyspnea on exertion or orthopnea Resp: Denies: dyspnea, productive cough or non-productive cough GI: Denies: abdominal pain, nausea, vomiting, diarrhea, constipation or hematochezia : Denies: flank pain, dysuria or hematuria Musc: Reports: back pain (Left lower back); Denies: neck pain or extremity swelling Skin/Breast: Denies: rash or new lesions Neuro: Denies: headache(s), numbness in extremities or weakness in extremities PFS ED PFSH: Medical History (Updated 03/29/23 @ 03:55 by DAVE Beltrán) Chronic back pain Diabetes No pertinent family history Social History Smoking and tobacco status: current every day smoker Female Reproductive History: Date of last menstrual period: 03/14/23 Physical Exam Const: COMMON NORMALS: no acute distress, patient oriented x3 and alert NUTRITIONAL APPEARANCE: obese HENMT: COMMON NORMALS: normocephalic HEAD & SCALP: normocephalic MOUTH: Normal oral and palatal mucosa present THROAT: posterior oropharynx normal and uvula midline Neck/C-Spine: COMMON NORMALS: supple GENERAL: Yes normal visual inspection Chest: OTHER: Chest pain is reproducible with palpation of left anterior chest wall. Resp: COMMON NORMALS: normal respiratory effort, No retractions, No use of accessory muscles and clear to auscultation bilaterally AUSCULTATION: clear to auscultation bilaterally Cardio: COMMON NORMALS: regular rate, regular rhythm, S1 normal heart sound present, S2 normal heart sound present, No gallops present (Cardio), No clicks present (Cardio), No murmurs present (Cardio) and Peripheral pulses 2+ throughout RATE: regular rate RHYTHM: regular rhythm HEART SOUNDS: S1 normal heart sound present and S2 normal heart sound present PERIPHERAL PULSES: Peripheral pulses 2+ throughout GI: COMMON NORMALS: Normal to inspection, nondistended, normoactive bowel sounds present, Soft to palpation, non-tender and no masses PALPATION: Yes Soft to palpation : COMMON NORMALS: Yes no CVA tenderness BLADDER/KIDNEY EXAM: Yes no CVA tenderness Back/Pelvis: COMMON NORMALS: no CVA tenderness Extremity: COMMON NORMALS: normal to inspection Neuro: COMMON NORMALS: patient oriented x3 SENSORIUM/ORIENTATION: Yes alert GAIT: Yes Normal gait present Skin: GENERAL SKIN EXAM: dry skin Course Vital Signs: Vital signs: Vital Signs Temperature 97.7 F 03/29/23 01:44 Pulse Rate 94 03/29/23 01:44 Respiratory Rate 25 H 03/29/23 03:20 Blood Pressure 137/83 03/29/23 01:44 Pulse Oximetry 96 03/29/23 03:20 Oxygen Delivery Me thod Room Air 03/29/23 01:44 MDM - Chest Pain Medical Decision Making Patient is a 37-year-old female comes to the ED with chest pain. Symptoms started initially at 4 PM when she was driving home from work. Chest pain was on the left side and she states that she has been having chest pain like this over the past several years. She rates the pain currently an 8 out of 10. Around 6 PM tonight she was laying down and developed shooting pains that started in her left arm and then started shooting down from left side of her chest into the left side of her abdomen and left leg. She also endorses having some left lower back pain as well. Denies any shortness of breath, fevers, chills, nausea/vomiting, abdominal pain, vaginal bleeding, bladder or bowel symptoms. Patient has a history of anxiety and panic attacks and states her chest pain feels nothing like her past panic attacks. Patient states she has a history of type 2 diabetes and was supposed to be on metformin and Trulicity but has stopped taking both for several months now. Vitals are stable. Patient appears nontoxic in no acute distress or pain. Chest pain is reproducible with palpation of left anterior chest wall. Rest of exam is benign. Blood glucose of 356 and the rest of CBC and CMP are unremarkable. UA was unremarkable. Troponin negative. EKG showed sinus rhythm with no ST segment elevation or depression seen. Chest x-ray showed no acute findings. Patient was given dose of morphine to help with pain while here in the ED. She was stable for discharge home and diagnosed with atypical chest pain and hyperglycemia due to type 2 diabetes. She was sent home with a new prescription for Trulicity. Told to follow-up with her PCP within the next week for reevaluation. Strict return to ED precautions given. Patient understood and agreed with plan. Dr. Ramirez reviewed case and agreed with plan. Lab Data I reviewed the patient's lab results. 03/29/23 02:25 03/29/23 02:25 Radiology Impressions Chest X-Ray 03/29/23 01:33 IMPRESSION: 1. No definite pneumonia or CHF. 2. Other findings discussed above. Laboratory Results WBC 10.3 10^3/uL (4.0-10.0) H 03/29/23 02:25 RBC 4.96 10^6/uL (4.1-5.3) 03/29/23 02:25 Hgb 14.0 g/dL (11.5-15.3) 03/29/23 02:25 Hct 37.7 % (37.0-47.0) 03/29/23 02:25 MCV 76.0 fl (81-99) L 03/29/23 02:25 MCH 28.2 pg (28.0-34.0) 03/29/23 02:25 MCHC 37.1 g/dL (30.0-36.0) H 03/29/23 02:25 RDW 12.6 % (12.1-15.1) 03/29/23 02:25 Plt Count 327 10^3/cmm (130-400) 03/29/23 02:25 MPV 9.6 fL (7.4-10.4) 03/29/23 02:25 Neut % (Auto) 62.0 % 03/29/23 02:25 Lymph % (Auto) 28.4 % 03/29/23 02:25 [place] % (Auto) 5.6 % 03/29/23 02:25 Eos % (Auto) 3.0 % 03/29/23 02:25 Baso % (Auto) 0.5 % 03/29/23 02:25 Neut # (Auto) 6.36 10^3/uL (1.8-7.7) 03/29/23 02:25 Lymph # (Auto) 2.9 10^3/uL (0.8-4.8) 03/29/23 02:25 [place] # (Auto) 0.6 10^3/uL (0.2-0.9) 03/29/23 02:25 Eos # (Auto) 0.3 10^3/uL (0.0-0.8) 03/29/23 02:25 Baso # (Auto) 0.1 10^3/uL (0.0-0.1) 03/29/23 02:25 Nucleated RBC % (auto) 0 % 03/29/23 02:25 Nucleated RBCs # 0.0 /100WBC 03/29/23 02:25 Sodium 134 mmol/L (136-145) L 03/29/23 02:25 Potassium 4.1 mmol/L (3.5-5.1) 03/29/23 02:25 Chloride 96 mmol/L (98-107) L 03/29/23 02:25 Carbon Dioxide 25 mmol/L (22-29) 03/29/23 02:25 Anion Gap 17.1 (5-19) 03/29/23 02:25 BUN 13 mg/dL (6-20) 03/29/23 02:25 Creatinine 0.7 mg/dL (0.5-0.9) 03/29/23 02:25 GFR Calculation 95.2 mL/min (90-130) 03/29/23 02:25 Glucose 356 mg/dL (65-115) H 03/29/23 02:25 POC Glucose 327 mg/dL (70-110) H 03/29/23 03:41 Calculated Osmolality 292 mOsm/kg (285-295) 03/29/23 02:25 Calcium 9.4 mg/dL (8.5-10.5) 03/29/23 02:25 Total Bilirubin 0.2 mg/dL (0.15-1.2) 03/29/23 02:25 AST 15 U/L (0-32) 03/29/23 02:25 ALT 20 U/L (0-33) 03/29/23 02:25 Alkaline Phosphatase 117 U/L (35-105) H 03/29/23 02:25 Troponin T Baseline 6 ng/L (0-10) 03/29/23 02:25 Total Protein 6.5 g/dL (6.6-8.7) L 03/29/23 02:25 Albumin 4.1 g/dL (3.5-5.2) 03/29/23 02:25 Globulin 2.4 g/dL (1.3-4.6) 03/29/23 02:25 Lipase 69 U/L (13-60) H 03/29/23 02:25 HCG, Qual Negative (Negative) 03/29/23 03:19 Urine Color Light yellow (Yellow) 03/29/23 03:19 Urine Appearance Clear (CLEAR) 03/29/23 03:19 Urine pH 5 (5-7) 03/29/23 03:19 Ur Specific [place] 1.020 (1.005-1.030) 03/29/23 03:19 Urine Protein Neg (Negative) 03/29/23 03:19 Urine Glucose (UA) 4+ (Normal) H 03/29/23 03:19 Urine Ketones Negative (Negative) 03/29/23 03:19 Urine Blood Neg (Negative) 03/29/23 03:19 Urine Nitrate Negative (Negative) 03/29/23 03:19 Urine Bilirubin Neg (Negative) 03/29/23 03:19 Urine Urobilinogen Neg mg/dL (Negative) 03/29/23 03:19 Ur Leukocyte Esterase Negative (Negative) 03/29/23 03:19 EKG Data EKG 1: EKG interpretation date: 03/29/23 Interpretation: Sinus rhythm with no ST segment elevation or depression seen. 72 bpm Discharge Plan Discharge Patient Disposition: Home Clinical Impression: Atypical chest pain Hyperglycemia due to type 2 diabetes mellitus Qualifiers: Diabetes mellitus termination clerk insulin use: without termination clerk use Qualified Code(s): E11.65 - Type 2 diabetes mellitus with hyperglycemia Condition: Stable Prescriptions: New Trulicity 0.75 mg/0.5 mL pen injector 0.75 mg SUBCUT ONCE Qty: 2 0RF Rx Instructions: Inject 0.75 mg subcutaneously once weekly. No Action citalopram [Celexa] 20 mg tablet 30 mg PO DAILY (DME) Hinge Knee brace See Rx Instructions .Route .MEDSUPPLY Qty: 1 0RF Rx Instructions: As directed metformin 500 mg tablet 500 mg PO BID lisinopril 10 mg tablet 10 mg PO DAILY ibuprofen 800 mg tablet 800 mg PO Q8H PRN (Reason: pain) Qty: 30 0RF Zithromax 250 mg tablet See Rx Instructions .ROUTE .COMPLEX Qty: 6 0RF Rx Instructions: For 250 mg dose pack: take 500 mg today (day 1), then 250 mg for 4 days (days 2-5) codeine-guaifenesin 10-100 mg/5 mL liquid 5 ml PO Q6H PRN (Reason: cough) Qty: 120 0RF albuterol sulfate 90 mcg/actuation HFA aerosol inhaler 2 inh INHALATION Q4H PRN (Reason: shortness of breath or wheezing) Qty: 6.7 1RF Discharge Orders: Discharge ED (Routine); Ordered 03/29/23 Ordered By: Chencho Montoya Referrals: Hosea Molina MD [Primary Care Provider] - Discharge Diet: Regular Discharge Activity: Increase activity as tolerated Patient Instructions: Type 2 Diabetes, Chest Pain (DC) Activity Restrictions/Additional Instructions: Follow-up with medical provider as directed in the next 5 to 7 days for reevaluation. Continue taking all home medications as previously prescribed. Sending you with a new prescription for Trulicity so get that filled and start taking to help manage your diabetes. return to the ER or your medical provider if condition worsens. Please read and understand discharge instructions. Thank you for choosing [facility] for your healthcare needs today. Please realize this is an emergency room and that we are providing you with a medical screening exam and this may not be complete and all inclusive of all the testing and or work up that you may need to determine your ailment or severity of your illness. It is very important that you follow up as instructed or that you return to the Emergency Department should you have concerns or if your condition changes or worsens in any way. Coding Level of Care Code ED Applied Anthropologist for Emmanuel Deluca
[2023-03-29 02:53] LABS: Troponin(5th) Baseline 6 ng/L (0-10)
[2023-03-29] MEDS: morphine 4 mg/mL SDV 1 mL IVP (03:20)
[2023-03-29 03:29] LABS: HCG Qualitative Urine. Negative (Negative)
--- NOTE | 2023-03-29 03:33 | ECG_ITS ---
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 Measurements Intervals [place] Rate: 72 P: 47 NM: 157 QRS: 50 QRSD: 101 T: 25 QT: 384 QTc: 423 Interpretive Statements SINUS RHYTHM WITH MARKED SINUS ARRHYTHMIA POSSIBLE RIGHT VENTRICULAR CONDUCTION DELAY [RSR (QR) IN V1/V2] Compared to ECG 03/29/2023 01:42:58 No significant changes Electronically Signed On 03-29-2023 16:09:05 CDT by Baldo Hinojosa M.D. [email or web address]
[2023-03-29 03:35] LABS: Add Urine Microscopic? NO; Charge for UA Resulting for Rev
[2023-03-29 03:37] LABS: Bilirubin Urine Neg (Negative); Blood Urine Neg (Negative); Glucose Urine UA 4+ (Normal); Ketones Urine Negative (Negative); Leukocyte Esterase Urine Negative (Negative); Nitrate Urine Negative (Negative); Protein Urine Neg (Negative); Urine Appearance Clear (CLEAR); Urine Color Light yellow (Yellow); Urobilinogen Urine Neg (Negative); pH Urine 5 (5-7)
[2023-03-29 03:50] LABS: Glucose Point of Care 327 mg/dL (70-110)
== END 2023-03-29 04:19 | disposition home or self-care (01) ==
PROVIDERS: Emergency Medicine; Emergency Provider Physician Assistant; PCP Family Medicine
DX: R07.89 Other chest pain (principal); E11.65 Type 2 diabetes mellitus with hyperglycemia; Z79.84 Long term (current) use of oral hypoglycemic drugs; F17.210 Nicotine dependence, cigarettes, uncomplicated
CPT/HCPCS: 36416; 71045; 80053; 81003; 81025; 82962; 83690; 84484; 85025; 93005; 96374; 99285; J2270

== ENCOUNTER 2023-09-15 21:40 | Emergency (ER) | payer OTHER, SELFPAY ==
[2023-09-15 21:59] VITALS: BP 134/79; PULSE 92; RESP 18; TEMP 36.6; O2SAT 97; BMI 42.0
[2023-09-15 23:06] VITALS: BP 130/78; PULSE 99; RESP 16; O2SAT 98
[2023-09-15] MEDS: ketorolac 60 mg/2 mL INJ IM (23:14)
[2023-09-15] MEDS: dexamethasone 10 mg/mL INJ IM (23:15)
[2023-09-15] MEDS: orphenadrine 30 mg/mL Inj 2 mL 60 MG IM (23:17)
--- NOTE | 2023-09-15 23:17 | W.ED.BACK ---
HPI - Back Pain/Injury General: Chief Complaint: Back Pain/Injury Stated Complaint: Lower Back Pain to Ankle Time Seen by Provider: 09/15/23 22:12 Source: patient Mode of arrival: ambulatory Limitations: no limitations History of Present Illness: Patient presents emergency department today for evaluation treatment of left low back pain with radiating pain down the left leg. Patient denies any falls or injuries but states she was moving some furniture prior to onset of her discomfort. She states she did not feel any specific pains while moving the furniture but, the pain came on later. She is still urinating without any difficulty. She is still ambulating and weightbearing. She states she has had issues with this in the past but not this significant. She has taken some Tylenol at home without noticeable improvement of her pain. Review of Systems General: Reports: 10 or more systems reviewed and unremarkable except in HPI and below PFSH ED PFSH: Medical History Diabetes No pertinent family history Chronic back pain Social History Smoking and tobacco/nicotine status: current every day tobacco/nicotine user Female Reproductive History: Date of last menstrual period: 09/13/23 Physical Exam Const: COMMON NORMALS: no acute distress, patient oriented x3 and alert OTHER: Patient is pleasant, social. Answers her own history. Vital signs are stable. HENMT: COMMON NORMALS: normocephalic, atraumatic and hearing grossly normal bilaterally HEAD & SCALP: normocephalic and atraumatic Eye: COMMON NORMALS: Equal, round and reactive pupils present, EOMs intact bilaterally and conjunctivae normal CONJUNCTIVA: Yes conjunctivae normal PUPIL: Yes Equal, round and reactive pupils present Neck/C-Spine: COMMON NORMALS: full ROM and no JVD Lymph: LYMPHATIC: no lymphadenopathy noted Resp: COMMON NORMALS: normal respiratory effort, No retractions and No use of accessory muscles Cardio: COMMON NORMALS: no JVD and regular rate RATE: regular rate Back/Pelvis: OTHER: Patient with reproducible tenderness to the left lower lumbar region extending across the SI and affecting the left mid buttock region. Patient is still ambulatory weightbearing here in the ER. Extremity: NARRATIVE EXTREMITY EXAM: Patient demonstrates ability to flex and extend the left hip and knee. She is nontender to palpation of the left knee or left ankle. No groin pain. Neuro: COMMON NORMALS: patient oriented x3 SENSORIUM/ORIENTATION: Yes alert Psych: COMMON NORMALS: mental status grossly normal, Normal thought process present, cooperative and normal affect THOUGHT PROCESS: Normal thought process present Skin: COMMON NORMALS: no rashes or lesions noted and turgor normal GENERAL SKIN EXAM: no rashes or lesions noted and turgor normal OTHER: Chronic, mild bilateral lower extremity edema. Course Vital Signs: Vital signs: Vital Signs Temperature 97.9 F 09/15/23 21:59 Pulse Rate 99 09/15/23 23:06 Respiratory Rate 16 09/15/23 23:06 Blood Pressure 130/78 09/15/23 23:06 Pulse Oximetry 98 09/15/23 23:06 Oxygen Delivery Me thod Room Air 09/15/23 23:06 MDM - Back Pain/Injury Medical Decision Making Patient presents to the emergency department today describing low back pain with left-sided sciatica. There is a known precursor to the development of her discomfort as she was moving furniture. Patient shows no signs of cauda equina. She has weightbearing and ambulation capabilities still. Patient was treated acutely here in the emergency department with steroid, muscle relaxer, and NSAID. Patient has a naproxen allergy but has no issues with ibuprofen, Aleve, Advil, etc. Patient will be discharged with ibuprofen, Medrol Dosepak, and muscle relaxers. She also be given some recommendations for at home care. She is to avoid any heavy lifting or strenuous activity for the next several days. Return precautions were given including any signs of bowel or bladder dysfunction. Patient verbalizes understanding and agreement to treatment plan. Differential Diagnosis Likely lumbar radiculopathy, sciatica and strain of lumbar region; Unlikely renal colic, pyelonephritis or thoracic back pain No radiology studies performed this visit Discharge Plan Discharge Patient Disposition: Home Clinical Impression: Lumbar radiculopathy Sciatica Qualifiers: Laterality: left Qualified Code(s): M54.32 - Sciatica, left side Condition: Stable Prescriptions: New ibuprofen 800 mg tablet 800 mg PO Q8H PRN (Reason: pain) Qty: 21 0RF methylprednisolone 4 mg tablets,dose pack See Rx Instructions .ROUTE .COMPLEX Qty: 21 0RF Rx Instructions: orally per package directions tizanidine 4 mg capsule 4 mg PO Q8H PRN (Reason: muscle spasticity) Qty: 20 0RF No Action citalopram [Celexa] 20 mg tablet 30 mg PO DAILY (DME) Hinge Knee brace See Rx Instructions .Route .MEDSUPPLY Qty: 1 0RF Rx Instructions: As directed metformin 500 mg tablet 500 mg PO BID lisinopril 10 mg tablet 10 mg PO DAILY ibuprofen 800 mg tablet 800 mg PO Q8H PRN (Reason: pain) Qty: 30 0RF Zithromax 250 mg tablet See Rx Instructions .ROUTE .COMPLEX Qty: 6 0RF Rx Instructions: For 250 mg dose pack: take 500 mg today (day 1), then 250 mg for 4 days (days 2-5) codeine-guaifenesin 10-100 mg/5 mL liquid 5 ml PO Q6H PRN (Reason: cough) Qty: 120 0RF albuterol sulfate 90 mcg/actuation HFA aerosol inhaler 2 inh INHALATION Q4H PRN (Reason: shortness of breath or wheezing) Qty: 6.7 1RF Trulicity 0.75 mg/0.5 mL pen injector 0.75 mg SUBCUT ONCE Qty: 2 0RF Rx Instructions: Inject 0.75 mg subcutaneously once weekly. Discharge Orders: Discharge ED (Routine); Ordered 09/16/23 Ordered By: Dary Otero Referrals: Hosea Molina MD [Primary Care Provider] - Discharge Diet: Usual diet Discharge Activity: Increase activity as tolerated Patient Instructions: Sciatica (ED), Lumbar Radiculopathy (ED), Opioid Safety, Pain Management Activity Restrictions/Additional Instructions: History and examination are consistent with a left-sided sciatica. This comes from strain on the low back. I am providing you medication which can help with this over the next couple days but encourage you to avoid any heavy lifting or strenuous activity. We recommend applying heating pads for 15 to 20 minutes in your low back for comfort. We also recommend carefully monitoring for any change in urination including difficulty going to the bathroom for voiding your urine. If this occurs or if you have any weakness or numbness into your left leg you need to be seen and reevaluated. Coding Level of Care Code ED Traveling Sales Executive for Emmanuel Deluca
--- NOTE | 2023-09-15 23:35 | PC.NURSE ---
Addendum entered by Chris Bone RN 09/15/23 23:38: report at [phone] Original Note: commercial insurance underwriter gave report to Jackie raymundo at [phone], pt stable no current complaints or concerns.
[2023-09-16 00:31] VITALS: BP 124/79; PULSE 92; RESP 16; O2SAT 97
== END 2023-09-16 00:32 | disposition home or self-care (01) ==
PROVIDERS: Emergency Provider Physician Assistant; PCP Family Medicine
DX: M54.32 Sciatica, left side (principal); M54.16 Radiculopathy, lumbar region; Z79.85 Long-term (current) use of injectable non-insulin antidiabetic drugs; Z79.84 Long term (current) use of oral hypoglycemic drugs; E11.9 Type 2 diabetes mellitus without complications; Z72.0 Tobacco use
CPT/HCPCS: 96372; 99284; J1100; J1885; J2360

== ENCOUNTER 2023-09-21 22:51 | Emergency (ER) | payer OTHER, MEDICAID, SELFPAY ==
[2023-09-21 22:57] VITALS: BP 156/98; PULSE 108; RESP 16; TEMP 36.6; O2SAT 96
[2023-09-22] MEDS: lidocaine 1% INJ 10 mL (per mL) 5 ML INTRADERMA (00:39)
[2023-09-22] MEDS: doxycycline 100 mg Tablet PO (00:40)
--- NOTE | 2023-09-22 00:56 | W.ED.GENADLT ---
HPI - General Adult General: Chief complaint: General Medical Stated complaint: swollen bug bite Time Seen by Provider: 09/21/23 23:41 Source: patient Mode of arrival: ambulatory Limitations: no limitations History of Present Illness: Patient presents emergency department today for evaluation treatment of redness and swelling to her inner right breast. Patient noticed about 24 hours ago some swelling and redness developing which seems to gotten worse throughout the day. She indicates it is not particularly tender or sore and it has not been draining. She thinks she may have gotten a bug bite there and with her bra rubbing may have made it worse but, she does ask in the room if it could be cancer. Review of Systems General: Reports: 10 or more systems reviewed and unremarkable except in HPI and below PFSH ED PFSH: Medical History Diabetes No pertinent family history Chronic back pain Social History Smoking and tobacco/nicotine status: current every day tobacco/nicotine user Physical Exam Const: COMMON NORMALS: no acute distress, patient oriented x3 and alert HENMT: COMMON NORMALS: normocephalic, atraumatic and hearing grossly normal bilaterally HEAD & SCALP: normocephalic and atraumatic Eye: COMMON NORMALS: Equal, round and reactive pupils present, EOMs intact bilaterally and conjunctivae normal CONJUNCTIVA: Yes conjunctivae normal PUPIL: Yes Equal, round and reactive pupils present Neck/C-Spine: COMMON NORMALS: full ROM and no JVD Lymph: LYMPHATIC: no lymphadenopathy noted Chest: OTHER: Patient has an area of circular erythema approximately 7 cm in diameter affecting the right mid, medial portion of the right breast tissue. There is a centralized area of fluctuance approximately 2 cm in diameter. No signs of active draining. No draining from the nipple. Breast tissue is otherwise soft and nontender. Chest images (female): 1. area of abscess Resp: COMMON NORMALS: normal respiratory effort, No retractions and No use of accessory muscles Cardio: COMMON NORMALS: no JVD and regular rate RATE: regular rate Neuro: COMMON NORMALS: patient oriented x3 SENSORIUM/ORIENTATION: Yes alert Psych: COMMON NORMALS: mental status grossly normal, Normal thought process present, cooperative and normal affect THOUGHT PROCESS: Normal thought process present Skin: COMMON NORMALS: no rashes or lesions noted and turgor normal GENERAL SKIN EXAM: no rashes or lesions noted and turgor normal Procedures Abscess I/D Site: chest (Medial breast) Side (if applicable): right Sedation/analgesia: none Local Anesthetic: lidocaine 1% Amount of anesthesia used (mL): 2 Technique: incised with #11 blade Amount of fluid expressed (mL): 2 Irrigation: Yes Packing used?: none Complications: other (None) Course Vital Signs: Vital signs: Vital Signs Temperature 97.9 F 09/21/23 22:57 Pulse Rate 108 H 09/21/23 22:57 Respiratory Rate 16 09/21/23 22:57 Blood Pressure 156/98 09/21/23 22:57 Pulse Oximetry 96 09/21/23 22:57 [facility] - General Adult Medical Decision Making Patient's examination today is consistent with an abscess. There is erythema and a centralized area of fluctuance. Discussed with patient my suspicion for infection versus cancer. Patient tolerated her I&D procedure without any difficulties. After injecting lidocaine, patient received a single straight incision with an 11 blade approximately 0.75 cm in length. Patient had a small amount of bleeding but, approximately 2 cc of yellow and green purulent material was able to be expressed. Abscess was irrigated using saline flushes until no return of purulent material was found with expression. Patient's abscess was then covered with nonstick Telfa and paper tape. Patient was given wound care instructions and a first dose of antibiotic provided here in the emergency department with the rest being sent to her preferred pharmacy to be picked up and continued in the morning. Strict return precautions were given. Patient verbalizes understanding and agreement to treatment plan. Differential Diagnosis DDx: Breast abscess, breast cellulitis, bug bite, mastitis, cancer No radiology studies performed this visit Discharge Plan Discharge Patient Disposition: Home Clinical Impression: Abscess of breast Condition: Stable Prescriptions: New doxycycline hyclate 100 mg tablet 100 mg PO BID 10 Days Qty: 20 0RF No Action citalopram [Celexa] 20 mg tablet 30 mg PO DAILY (DME) Hinge Knee brace See Rx Instructions .Route .MEDSUPPLY Qty: 1 0RF Rx Instructions: As directed metformin 500 mg tablet 500 mg PO BID lisinopril 10 mg tablet 10 mg PO DAILY ibuprofen 800 mg tablet 800 mg PO Q8H PRN (Reason: pain) Qty: 30 0RF Zithromax 250 mg tablet See Rx Instructions .ROUTE .COMPLEX Qty: 6 0RF Rx Instructions: For 250 mg dose pack: take 500 mg today (day 1), then 250 mg for 4 days (days 2-5) codeine-guaifenesin 10-100 mg/5 mL liquid 5 ml PO Q6H PRN (Reason: cough) Qty: 120 0RF albuterol sulfate 90 mcg/actuation HFA aerosol inhaler 2 inh INHALATION Q4H PRN (Reason: shortness of breath or wheezing) Qty: 6.7 1RF Trulicity 0.75 mg/0.5 mL pen injector 0.75 mg SUBCUT ONCE Qty: 2 0RF Rx Instructions: Inject 0.75 mg subcutaneously once weekly. ibuprofen 800 mg tablet 800 mg PO Q8H PRN (Reason: pain) Qty: 21 0RF methylprednisolone 4 mg tablets,dose pack See Rx Instructions .ROUTE .COMPLEX Qty: 21 0RF Rx Instructions: orally per package directions tizanidine 4 mg capsule 4 mg PO Q8H PRN (Reason: muscle spasticity) Qty: 20 0RF Discharge Orders: Discharge ED (Routine); Ordered 09/22/23 Ordered By: Dary Otero Referrals: Hosea Molina MD [Primary Care Provider] - Discharge Diet: Usual diet Discharge Activity: Increase activity as tolerated Patient Instructions: Abscess (ED) Activity Restrictions/Additional Instructions: Examination today was suspicious for abscess formation on the breast. We were able to incise and drain the abscess and several cc of purulent material was able to be removed. After irrigation of the abscess we placed a sterile bandage. We recommend washing the site once or twice a day with warm water and mild soap. We also recommend keeping it covered with bandaging to prevent rubbing of the area. We are putting you on antibiotics to treat but encourage you to continue watching for any spreading redness, sudden swelling, or increase in pain over the next several days. If these occur we do recommend you be seen and reevaluated. Coding Level of Care Code ED Business Management Intern for Emmanuel Deluca
[2023-09-22 00:59] VITALS: PULSE 91; O2SAT 97
[2023-09-22 01:09] VITALS: RESP 16; O2SAT 99
== END 2023-09-22 01:14 | disposition home or self-care (01) ==
PROVIDERS: Emergency Provider Physician Assistant; PCP Family Medicine
DX: N61.1 Abscess of the breast and nipple (principal); Z79.85 Long-term (current) use of injectable non-insulin antidiabetic drugs; Z79.84 Long term (current) use of oral hypoglycemic drugs; E11.9 Type 2 diabetes mellitus without complications; Z72.0 Tobacco use
CPT/HCPCS: 99283

== ENCOUNTER 2023-11-02 09:08 | Emergency (ER) | payer OTHER, MEDICAID, SELFPAY ==
--- NOTE | 2023-11-02 09:13 | ECG_ITS ---
[facility] Test Date: 2023-11-02 Pat Name: Lara Clement Department: Room: Gender: Female Lead Inspector: : 1985 Requested By: Lorrie Barriga Order Number: [id number] Gary MD: Misa Mckeon M.D. Measurements Intervals [place] Rate: 109 P: 43 HI: 124 QRS: 47 QRSD: 86 T: 20 QT: 325 QTc: 439 Interpretive Statements SINUS TACHYCARDIA ABNORMAL RHYTHM ECG Compared to ECG 03/29/2023 03:43:50 Sinus rhythm no longer present Sinus arrhythmia no longer present Electronically Signed On 11-02-2023 17:35:14 BELT AND LINK ASSEMBLY SUPERVISOR by Misa Mckeon M.D. [id number]
[2023-11-02 09:17] VITALS: BP 155/91; PULSE 110; RESP 17; TEMP 36.6; O2SAT 96
--- NOTE | 2023-11-02 10:02 | XR_ITS ---
WS: [id number] Portable AP upright chest, 11/02/2023 Clinical Data: chest pain Comparison: Portable chest, 03/29/2023 Findings: No nodules, masses or effusions are seen. The heart is normal. The pulmonary vascularity is not increased. No pneumonia or pneumothorax is seen. There are decorative artifacts overlying both b reasts. Impression: Negative chest.
--- NOTE | 2023-11-02 10:20 | W.ED.CHESTPA ---
HPI - Chest Pain General: Chief Complaint: Chest Pain Stated Complaint: chest pains Time Seen by Provider: 11/02/23 09:12 Source: patient Mode of arrival: ambulatory Limitations: no limitations History of Present Illness: Patient is a 38-year-old female who presents to ED today with complaint of substernal chest pain that began around 3 AM this morning that awoke her from sleep. Patient describes the pain as aching/heaviness. There is no radicular pain into her arms or jaw or back. She has no known previous cardiac history. She does not complain of shortness of breath, difficulty breathing, lower extremity swelling/calf pain, weight gain, PND or orthopnea. When asked about any recent illness she does tell me she had a cold recently but feels like she recovered fully from this. She has not been running fevers. No cough. Patient arrives in no acute distress. She is slightly tachycardic. No risk factors for PE. MD complaint: chest pain Onset (ago): hour(s) Timing of current episode: constant Prior episodes: Yes Onset: awoke with symptoms Pain location: substernal Pain radiation: none Severity: moderate Quality: aching and heaviness Relieving factors: nothing Exacerbating factors: nothing Associated symptoms: Deny abdominal pain, dyspnea, fever(s), palpitations, syncope or vomiting Treatment prior to arrival: none Risk Factors: Coronary artery disease risk factors: none Thoracic aortic dissection risk factors: none Related Data: On Oral Contraceptives: No Review of Systems Const: Denies: fever(s), chills, body aches, fatigue or malaise ENMT: Denies: throat pain, odynophagia, nasal discharge, nasal congestion or sinus pain Card: Reports: chest pain; Denies: palpitations, irregular heart rhythm, edema, swelling of feet/ankles, lightheadedness, syncope, pre-syncope, dyspnea on exertion, orthopnea, leg pain with exertion or acrocyanosis Resp: Denies: dyspnea, productive cough, non-productive cough, wheezing, pain on inspiration, change in phlegm color, hemoptysis or chest congestion GI: Denies: abdominal pain, vomiting or diarrhea : Denies: flank pain, dysuria or hematuria Musc: Denies: neck pain, back pain, extremity pain, extremity swelling or joint pain Skin/Breast: Denies: rash Neuro: Denies: headache(s) or dizziness [facility] ED PFSH: Medical History Diabetes No pertinent family history Chronic back pain Social History Smoking and tobacco/nicotine status: current every day tobacco/nicotine user Physical Exam Const: COMMON NORMALS: no acute distress, patient oriented x3, no limitations, alert and well nourished GENERAL APPEARANCE: cooperative NUTRITIONAL APPEARANCE: obese ORIENTATION/CONSCIOUSNESS: Yes awake, Yes oriented to person, Yes oriented to place and Yes oriented to time HENMT: COMMON NORMALS: normocephalic and atraumatic HEAD & SCALP: normocephalic and atraumatic Eye: GENERAL EYE: appearance normal, both eyes and all related structures Neck/C-Spine: COMMON NORMALS: full ROM, no lymphadenopathy, supple and no meningeal signs Chest: COMMONS NORMALS: normal inspection of the chest OTHER: TTP anterior chest wall Resp: COMMON NORMALS: normal respiratory effort and clear to auscultation bilaterally AUSCULTATION: clear to auscultation bilaterally Cardio: COMMON NORMALS: regular rhythm RATE: tachycardic (mild-102) RHYTHM: regular rhythm GI: COMMON NORMALS: Normal to inspection, nondistended, normoactive bowel sounds present, Soft to palpation, non-tender, No hepatosplenomegaly present and no masses PALPATION: Yes Soft to palpation and Yes No hepatosplenomegaly present Back/Pelvis: COMMON NORMALS: thoracic and lumbar spine normal to inspection Extremity: COMMON NORMALS: normal to inspection, no clubbing, cyanosis or edema, no calf tenderness and no pedal edema Neuro: JARED COMA SCALE: document GCS findings Jared coma scale eye opening: Spontaneous [place] coma scale verbal response: Orientated Jared coma scale motor response: Obey commands [place] coma scale total score: 15 COMMON NORMALS: patient oriented x3 SENSORIUM/ORIENTATION: Yes alert, Yes oriented to person, Yes oriented to place and Yes oriented to time MENINGEAL SIGNS: Yes no meningeal signs Skin: COMMON NORMALS: no rashes or lesions noted GENERAL SKIN EXAM: no rashes or lesions noted Course Vital Signs: Vital signs: Vital Signs Temperature 97.9 F 11/02/23 09:17 Pulse Rate 80 11/02/23 11:16 Respiratory Rate 21 H 11/02/23 11:16 Blood Pressure 116/80 11/02/23 11:16 Pulse Oximetry 95 11/02/23 11:16 Oxygen Delivery Me thod Room Air 11/02/23 11:16 MDM - Chest Pain Medical Decision Making Patient arrives in no acute distress. Her vital signs are stable. Blood work including troponin and D-dimer are completely unremarkable apart from elevated glucose-states she is supposed to be on diabetic meds and at one point was on Trulicity but her insurance is no longer covering-was taken off Metformin due to unwanted side effects-recommend she speak to PCP Dr. Molina about other options. Her baseline and repeat EKGs are nonischemic without arrhythmia. CXR is unremarkable. Patient does have tenderness to palpation over her anterior chest wall. She will be allowed discharge with recommendations to follow-up with her primary care provider if symptoms persist. Medical Records I reviewed the patient's medical records. Lab Data I reviewed the patient's lab results. 11/02/23 10:45 11/02/23 10:45 Laboratory Results WBC 7.92 10^3/uL (3.29-11.43) 11/02/23 10:45 RBC 5.63 10^6/uL (3.85-5.65) 11/02/23 10:45 Hgb 15.50 g/dL (11.27-16.99) 11/02/23 10:45 Hct 43.4 % (36-47) 11/02/23 10:45 MCV 77.1 fl (85-98) L 11/02/23 10:45 MCH 27.5 pg (27-33) 11/02/23 10:45 MCHC 35.7 g/dL (30-55) 11/02/23 10:45 RDW 12.9 % (12.1-15.1) 11/02/23 10:45 Plt Count 270 10^3/cmm (157-399) 11/02/23 10:45 MPV 10.0 fL (7.4-10.4) 11/02/23 10:45 Neut % (Auto) 61.9 % 11/02/23 10:45 Lymph % (Auto) 29.7 % 11/02/23 10:45 Peach % (Auto) 3.9 % 11/02/23 10:45 Eos % (Auto) 3.5 % 11/02/23 10:45 Baso % (Auto) 0.5 % 11/02/23 10:45 Neut # (Auto) 4.90 10^3/uL (1.8-7.7) 11/02/23 10:45 Lymph # (Auto) 2.4 10^3/uL (0.8-4.8) 11/02/23 10:45 Peach # (Auto) 0.3 10^3/uL (0.2-0.9) 11/02/23 10:45 Eos # (Auto) 0.3 10^3/uL (0.0-0.8) 11/02/23 10:45 Baso # (Auto) 0.0 10^3/uL (0.0-0.1) 11/02/23 10:45 Nucleated RBC % (auto) 0 % 11/02/23 10:45 Nucleated RBCs # 0.0 /100WBC 11/02/23 10:45 D-Dimer 0.50 ug/mLFEU (0-0.59) 11/02/23 10:45 Sodium 134 mmol/L (136-145) L 11/02/23 10:45 Potassium 4.3 mmol/L (3.5-5.1) 11/02/23 10:45 Chloride 100 mmol/L (98-107) 11/02/23 10:45 Carbon Dioxide 19 mmol/L (22-29) L 11/02/23 10:45 Anion Gap 19.3 (5-19) H 11/02/23 10:45 BUN 9 mg/dL (6-20) 11/02/23 10:45 Creatinine 0.4 mg/dL (0.5-0.9) L 11/02/23 10:45 GFR Calculation 180.6 mL/min (90-130) H 11/02/23 10:45 Glucose 290 mg/dL (65-115) H 11/02/23 10:45 Calculated Osmolality 287 mOsm/kg (285-295) 11/02/23 10:45 Calcium 8.8 mg/dL (8.5-10.5) 11/02/23 10:45 Total Bilirubin 0.3 mg/dL (0.15-1.2) 11/02/23 10:45 AST 15 U/L (0-32) 11/02/23 10:45 ALT 19 U/L (0-33) 11/02/23 10:45 Alkaline Phosphatase 134 U/L (35-105) H 11/02/23 10:45 Troponin T Baseline < 6 ng/L (0-10) 11/02/23 10:45 Total Protein 6.6 g/dL (6.6-8.7) 11/02/23 10:45 Albumin 3.9 g/dL (3.5-5.2) 11/02/23 10:45 Globulin 2.7 g/dL (1.3-4.6) 11/02/23 10:45 HCG, Qual Negative (Negative) 11/02/23 10:45 All radiology interpretation(s) finalized by discharge Discharge Plan Discharge Patient Disposition: Home Clinical Impression: Non-cardiac chest pain Condition: Stable Prescriptions: No Action (DME) Hinge Knee brace See Rx Instructions .Route .MEDSUPPLY Qty: 1 0RF Rx Instructions: As directed albuterol sulfate 90 mcg/actuation HFA aerosol inhaler 2 inh INHALATION Q4H PRN (Reason: shortness of breath or wheezing) Qty: 6.7 1RF ibuprofen 800 mg tablet 800 mg PO Q8H PRN (Reason: pain) Qty: 21 0RF tizanidine 4 mg capsule 4 mg PO Q8H PRN (Reason: muscle spasticity) Qty: 20 0RF Discharge Orders: Discharge ED (Routine); Ordered 11/02/23 Ordered By: Lorrie Barriga Referrals: Hosea Molina MD [Primary Care Provider] - Patient Instructions: Chest Pain (DC), Noncardiac Chest Pain (ED) Coding Level of Care Code ED Member Of The Legislative Council for Emmanuel Deluca
[2023-11-02 11:16] VITALS: BP 116/80; PULSE 80; RESP 21; O2SAT 95
[2023-11-02 11:30] LABS: Basophils % 0.5 %; Eosinophils # 0.3 10^3/uL (0.0-0.8); Eosinophils % 3.5 %; Hematocrit 43.4 % (36-47); Lymphocytes # 2.4 10^3/uL (0.8-4.8); Lymphocytes % 29.7 %; Mean Corpuscular HGB Conc 35.7 g/dL (30-55); Mean Corpuscular Hemoglobin 27.5 pg (27-33); Mean Corpuscular Volume 77.1 fl (85-98); Monocytes # 0.3 10^3/uL (0.2-0.9); Monocytes % 3.9 %; Neutrophils % 61.9 %; Nucleated Red Blood Cells % 0 %; Platelet Count 270 10^3/cmm (157-399); Red Blood Count 5.63 10^6/uL (3.85-5.65); Red Cell Distribution Width 12.9 % (12.1-15.1); White Blood Count 7.92 10^3/uL (3.29-11.43)
[2023-11-02 11:48] LABS: HCG, Serum Qual Negative (Negative)
[2023-11-02 11:54] LABS: Troponin(5th) Baseline < 6 ng/L (0-10)
[2023-11-02 11:56] LABS: Alanine Aminotransferase 19 U/L (0-33); Albumin Level 3.9 g/dL (3.5-5.2); Alkaline Phosphatase 134 U/L (35-105); Aspartate Amino Transferase 15 U/L (0-32); Blood Urea Nitrogen 9 mg/dL (6-20); Calcium 8.8 mg/dL (8.5-10.5); Carbon Dioxide 19 mmol/L (22-29); Chloride 100 mmol/L (98-107); Globulin 2.7 g/dL (1.3-4.6); Glomerular Filtration Rate 180.6 mL/min (90-130); Glucose 290 mg/dL (65-115); Osmolality Calculated 287 mOsm/kg (285-295); Sodium 134 mmol/L (136-145); Total Bilirubin 0.3 mg/dL (0.15-1.2); Total Protein 6.6 g/dL (6.6-8.7)
[2023-11-02 11:57] LABS: Anion Gap 19.3 (5-19); Creatinine Clr Calc Pharmacy 220.3566; Potassium 4.3 mmol/L (3.5-5.1)
--- NOTE | 2023-11-02 12:02 | ECG_ITS ---
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 Measurements Intervals [place] Rate: 93 P: 52 WV: 153 QRS: 54 QRSD: 91 T: 21 QT: 363 QTc: 452 Interpretive Statements SINUS RHYTHM LOW QRS VOLTAGE IN PRECORDIAL LEADS [QRS DEFLECTION < 1.0 mV IN CHEST LEADS] Compared to ECG 11/02/2023 09:13:46 Low QRS voltage now present Sinus tachycardia no longer present Electronically Signed On 11-02-2023 18:03:30 CORE DRILLER HELPER by Misa Mckeon M.D. [id number]
[2023-11-02 12:10] VITALS: BP 118/75; PULSE 102; RESP 16; TEMP 36.6; O2SAT 98
== END 2023-11-02 12:12 | disposition home or self-care (01) ==
PROVIDERS: Emergency Provider Physician Assistant; PCP Family Medicine
DX: R07.89 Other chest pain (principal); E11.9 Type 2 diabetes mellitus without complications; Z72.0 Tobacco use
CPT/HCPCS: 36415; 71045; 80053; 84484; 84703; 85025; 85378; 93005; 99285

== ENCOUNTER 2023-11-27 19:25 | Emergency (ER) | payer OTHER, SELFPAY ==
--- NOTE | 2023-11-27 19:27 | XRR_ITS ---
PROCEDURE INFORMATION: Exam: XR Left Shoulder Exam date and time: 11/27/2023 7:46 PM Age: 38 years old Clinical indication: Injury or trauma; Other: Lifting a stove felt shoulder pop; Other: Lifting injury TECHNIQUE: Imaging protocol: Radiologic exam of the left shoulder. Views: 2 or more views. COMPARISON: CR XR chest 1V portable [id number] 11/02/2023 10:27 AM FINDINGS: Bones/joints: Normal. Soft tissues: Normal. XR/XR shoulder LT min 2V* [id number] IMPRESSION: No acute findings.
[2023-11-27 19:38] VITALS: BP 146/92; PULSE 99; RESP 16; TEMP 36.9; O2SAT 96; BMI 43.3
--- NOTE | 2023-11-27 19:47 | ED_ITS ---
Documented by User: DAVE Bejarano 11/27/23 20:14 HPI - Extremity Problem General: Chief complaint: Extremity Injury, Upper Stated complaint: left shoulder pain/injury Time Seen by Provider: 11/27/23 19:38 Source: patient Mode of arrival: ambulatory Limitations: no limitations History of Present Illness: Patient is a 38-year-old female presenting to the emergency department complaining of left shoulder pain onset today around 1500. Patient notes she was lifting a stove appliance out of the truck, when she notes sudden pop and pain to the anterior left shoulder. She is left-hand dominant. She has never injured this shoulder had prior surgeries. She notes the pain is sharp and worsening, with radiation down the left arm. She denies any breathing diffic ulties or chest pain. She has taken Tylenol and ibuprofen, approximately 1600, with minimal relief. She denies any distal neurovascular complaints, or any other symptoms at this time. Pain is essentially reproduced with any range of motion. MD Complaint: extremity pain (Left arm radiation) and joint pain (Left shoulder) Onset (ago): hour(s) Pain Consistency: constant Location: left Quality: sharp Radiation: distal Relieving factors: nothing Exacerbating factors: range of motion and palpation Associated symptoms: Reports no associated symptoms; Deny chest pain, fever(s) or rash Review of Systems General: Reports: 10 or more systems reviewed and unremarkable except in HPI and below Const: Denies: fever(s), chills or fatigue Eyes: Denies: change in vision ENMT: Denies: throat pain, ear or mastoid pain or nasal discharge Card: Denies: chest pain, palpitations, swelling of feet/ankles or lightheadedness Resp: Denies: dyspnea, productive cough or wheezing GI: Denies: abdominal pain, nausea, vomiting, diarrhea or constipation : Denies: flank pain, difficulty voiding, dysuria or urinary frequency Musc: Reports: extremity pain (Left arm), joint pain (Left shoulder) and limited range of motion; Denies: neck pain, back pain, extremity swelling, joint swelling, joint redness, joint warmth or joint stiffness Skin/Breast: Denies: rash Neuro: Denies: headache(s), numbness in extremities or weakness in extremities PFS ED PFSH: Medical History Diabetes No pertinent family history Chronic back pain Social History Smoking and tobacco/nicotine status: current every day tobacco/nicotine user Female Reproductive History: Date of last menstrual period: 11/13/23 Physical Exam Const: COMMON NORMALS: no acute distress, patient oriented x3 and no limitations GENERAL APPEARANCE: cooperative, comfortable and well developed ORIENTATION/CONSCIOUSNESS: Yes awake, Yes oriented to person, Yes oriented to place and Yes oriented to time HENMT: COMMON NORMALS: normocephalic, atraumatic and hearing grossly normal bilaterally HEAD & SCALP: normocephalic and atraumatic Eye: COMMON NORMALS: Equal, round and reactive pupils present, EOMs intact bilaterally and conjunctivae normal CONJUNCTIVA: Yes conjunctivae normal PUPIL: Yes Equal, round and reactive pupils present Neck/C-Spine: COMMON NORMALS: full ROM, supple and no JVD Resp: COMMON NORMALS: normal respiratory effort, No retractions, No use of accessory muscles and clear to auscultation bilaterally AUSCULTATION: clear to auscultation bilaterally Cardio: COMMON NORMALS: no JVD, regular rate, regular rhythm, No clicks present (Cardio), No murmurs present (Cardio) and No rub (Cardio) RATE: regular rate RHYTHM: regular rhythm Extremity: COMMON NORMALS: normal to inspection, capillary refill normal, no joint enlargement and no clubbing, cyanosis or edema NARRATIVE EXTREMITY EXAM: Tenderness palpation at the anterior left shoulder joint. No deformities or bruising noted. No clavicle or scapular spine tenderness. No obvious dislocation noted. Special testing of the left shoulder unreliable due to patient's pain with any range of motion. Distal neurovascular exam intact. Neuro: COMMON NORMALS: patient oriented x3, moves all extremities, no focal motor deficits and no sensory deficits noted SENSORIUM/ORIENTATION: Yes oriented to person, Yes oriented to place and Yes oriented to time Psych: COMMON NORMALS: mental status grossly normal and Normal thought process present THOUGHT PROCESS: Normal thought process present Skin: COMMON NORMALS: no rashes or lesions noted GENERAL SKIN EXAM: no rashes or lesions noted Course Vital Signs: Vital signs: Vital Signs Temperature 98.5 F 11/27/23 19:38 Pulse Rate 87 11/27/23 20:17 Respiratory Rate 16 11/27/23 20:17 Blood Pressure 146/92 11/27/23 19:38 Pulse Oximetry 98 11/27/23 20:17 Oxygen Delivery Me thod Room Air 11/27/23 19:38 MDM - Extremity (Nontraumatic) Medical Decision Making Patient seen and evaluated due to left shoulder pain suffered today after attempting to lift a stove. Patient has no prior injuries or surgeries to the shoulder. On arrival vitals normal. Exam positive for tenderness to palpation of the anterior shoulder as well as pain with all range of motion. X-ray unremarkable did not show any fractures or dislocations. Patient given IM injections of Norflex, Toradol, and Decadron. Upon recheck she states she felt a little better, and is ready to go home. I informed her to follow-up with primary care if her symptoms do not improve for potential MRI or other testing. Told to alternate ibuprofen and Tylenol and to enact RICE therapy. Patient agrees with plan and return precautions are given. Lab Data Radiology Impressions Shoulder X-Ray 11/27/23 19:27 IMPRESSION: No acute findings. All radiology interpretation(s) finalized by discharge Discharge Plan Discharge Patient Disposition: Home Clinical Impression: Left shoulder strain Qualifiers: Encounter type: initial encounter Qualified Code(s): S46.912A - Strain of unspecified muscle, fascia and tendon at shoulder and upper arm level, left arm, initial encounter Condition: Stable Prescriptions: No Action (DME) Hinge Knee brace See Rx Instructions .Route .MEDSUPPLY Qty: 1 0RF Rx Instructions: As directed albuterol sulfate 90 mcg/actuation HFA aerosol inhaler 2 inh INHALATION Q4H PRN (Reason: shortness of breath or wheezing) Qty: 6.7 1RF ibuprofen 800 mg tablet 800 mg PO Q8H PRN (Reason: pain) Qty: 21 0RF tizanidine 4 mg capsule 4 mg PO Q8H PRN (Reason: muscle spasticity) Qty: 20 0RF Discharge Orders: Discharge ED (Routine); Ordered 11/27/23 Ordered By: Adria Smith Referrals: Hosea Molina MD [Primary Care Provider] - Discharge Diet: Usual diet Discharge Activity: Limit activity as instructed Patient Instructions: Shoulder Sprain (ED) Activity Restrictions/Additional Instructions: Rest, ice, compression, elevation. Alternate Tylenol and ibuprofen for pain. Follow-up with primary care if your symptoms do not improve or worsen. Return with any new or concerning symptoms you may have. 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 Documented by User: Natalio Smith DO 12/01/23 08:26 HPI - Extremity Problem General: Chief complaint: Extremity Injury, Upper Stated complaint: left shoulder pain/injury Time Seen by Provider: 11/27/23 19:38 [facility] ED PFSH: Medical History Diabetes No pertinent family history Chronic back pain Social History Smoking and tobacco/nicotine status: current every day tobacco/nicotine user Course Vital Signs: Vital signs: Vital Signs Temperature 98.5 F 11/27/23 19:38 Pulse Rate 87 11/27/23 20:17 Respiratory Rate 16 11/27/23 20:17 Blood Pressure 146/92 11/27/23 19:38 Pulse Oximetry 98 11/27/23 20:17 Oxygen Delivery Me thod Room Air 11/27/23 19:38 MDM - Extremity (Nontraumatic) Medical Decision Making Patient seen and evaluated due to left shoulder pain suffered today after attempting to lift a stove. Patient has no prior injuries or surgeries to the shoulder. On arrival vitals normal. Exam positive for tenderness to palpation of the anterior shoulder as well as pain with all range of motion. X-ray unremarkable did not show any fractures or dislocations. Patient given IM injec tions of Norflex, Toradol, and Decadron. Upon recheck she states she felt a little better, and is ready to go home. I informed her to follow-up with primary care if her symptoms do not improve for potential MRI or other testing. Told to alternate ibuprofen and Tylenol and to enact RICE therapy. Patient agrees with plan and return precautions are given. Chart reviewed Lab Data Radiology Impressions Shoulder X-Ray 11/27/23 19:27 IMPRESSION: No acute findings. Discharge Plan Discharge Patient Disposition: Home Clinical Impression: Left shoulder strain Qualifiers: Encounter type: initial encounter Qualified Code(s): S46.912A - Strain of unspecified muscle, fascia and tendon at shoulder and upper arm level, left arm, initial encounter Condition: Stable Prescriptions: No Action (DME) Hinge Knee brace See Rx Instructions .Route .MEDSUPPLY Qty: 1 0RF Rx Instructions: As directed albuterol sulfate 90 mcg/actuation HFA aerosol inhaler 2 inh INHALATION Q4H PRN (Reason: shortness of breath or wheezing) Qty: 6.7 1RF ibuprofen 800 mg tablet 800 mg PO Q8H PRN (Reason: pain) Qty: 21 0RF tizanidine 4 mg capsule 4 mg PO Q8H PRN (Reason: muscle spasticity) Qty: 20 0RF Discharge Orders: Discharge ED (Routine); Ordered 11/27/23 Ordered By: Adria Smith Referrals: Hosea Molina MD [Primary Care Provider] - Discharge Diet: Usual diet Discharge Activity: Limit activity as instructed Patient Instructions: Shoulder Sprain (ED) Activity Restrictions/Additional Instructions: Rest, ice, compression, elevation. Alternate Tylenol and ibuprofen for pain. Follow-up with primary care if your symptoms do not improve or worsen. Return with any new or concerning symptoms you may have. 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
[2023-11-27] MEDS: ketorolac 60 mg/2 mL INJ IM (19:51)
[2023-11-27] MEDS: dexamethasone 10 mg/mL INJ 8 MG IM (19:52)
[2023-11-27] MEDS: orphenadrine 30 mg/mL Inj 2 mL 60 MG IM (19:52)
[2023-11-27 20:17] VITALS: PULSE 87; RESP 16; O2SAT 98
== END 2023-11-27 20:18 | disposition home or self-care (01) ==
PROVIDERS: Emergency Provider Physician Assistant; PCP Family Medicine
DX: S46.912A Strain of unspecified muscle, fascia and tendon at shoulder and upper arm level, left arm, initial encounter (principal); E11.9 Type 2 diabetes mellitus without complications; Z72.0 Tobacco use; X50.0XXA Overexertion from strenuous movement or load, initial encounter
CPT/HCPCS: 73030; 96372; 99284; J1100; J1885; J2360

== ENCOUNTER 2023-12-13 01:45 | Emergency (ER) | payer OTHER, SELFPAY ==
[2023-12-13] VITALS (7 sets, daily range): BP systolic 104–158; BP diastolic 58–95; PULSE 81–87; RESP 14–25; TEMP 36.7; O2SAT 96–98; BMI 42.4
--- NOTE | 2023-12-13 02:15 | XRR_ITS ---
PROCEDURE INFORMATION: Exam: XR Chest Exam date and time: 12/13/2023 2:18 AM Age: 38 years old Clinical indication: Angina and shortness of breath; Additional info: Cxp TECHNIQUE: Imaging protocol: Radiologic exam of the chest. Views: 1 view. COMPARISON: CR XR chest 1V portable [id number] 11/02/2023 10:27 AM FINDINGS: Lungs: Unremarkable. No consolidation. Pleural spaces: Unremarkable. No pleural effusion. No pneumothorax. Heart/Mediastinum: Unremarkable. No cardiomegaly. Bones/joints: Unremarkable. XR/XR chest 1V portable [id number] IMPRESSION: No acute findings.
--- NOTE | 2023-12-13 02:15 | ECG_ITS ---
[facility] Test Date: 2023-12-13 Pat Name: Lara Clement Department: Room: Gender: Female Media Specialist: : [id number] Requested By: Richard Medina Order Number: [id number] Gary MD: Baldo Hinojosa M.D. Measurements Intervals [place] Rate: 90 P: 55 [place]: 155 QRS: 38 QRSD: 87 T: 27 QT: 344 QTc: 422 Interpretive Statements SINUS RHYTHM Compared to ECG 11/02/2023 11:57:16 No significant changes Electronically Signed On 12-13-2023 6:35:38 CDT by Baldo Hinojosa M.D. [id number]
[2023-12-13 02:22] LABS: Basophils % 0.5 %; Eosinophils # 0.3 10^3/uL (0.0-0.8); Eosinophils % 3.3 %; Hematocrit 46.1 % (36-47); Lymphocytes % 36.5 %; Mean Corpuscular HGB Conc 35.6 g/dL (30-55); Mean Corpuscular Hemoglobin 27.3 pg (27-33); Mean Corpuscular Volume 76.7 fl (85-98); Mean Platelet Volume 9.4 fL (7.4-10.4); Monocytes # 0.4 10^3/uL (0.2-0.9); Monocytes % 5.4 %; Neutrophils # 4.43 10^3/uL (1.8-7.7); Neutrophils % 53.9 %; Nucleated Red Blood Cells % 0 %; Platelet Count 306 10^3/cmm (157-399); Red Blood Count 6.01 10^6/uL (3.85-5.65); White Blood Count 8.21 10^3/uL (3.29-11.43)
--- NOTE | 2023-12-13 02:31 | ED_ITS ---
HPI - Chest Pain 2 General: Chief Complaint: Chest Pain Stated Complaint: Left Shoulder hurts\Heart Burn\Chest Pain Time Seen by Provider: 12/13/23 02:15 History of Present Illness: 38-year-old female presents emergency de partment complaints of heartburn and left shoulder pain. She states she also feels like she is having some pressure to the substernal and epigastric region of her chest. She states this 3 out of 10 burning pain that started approximately 1 hour ago. Patient was recently seen here in the emergency department on 11/27/2023 for left shoulder pain. Patient was also evaluated on 11/02/2023 for chest pain. She denies shortness of breath, swelling, orthopnea, she denies nausea or vomiting. Review of Systems 2 General: Reports: 10 or more systems reviewed and unremarkable except in HPI and below Card: Reports: chest pain GI: Reports: heartburn [facility] 2 PFSH: Medical History Diabetes No pertinent family history Chronic back pain Social History Smoking and tobacco/nicotine status: current every day tobacco/nicotine user Female Reproductive History: Date of last menstrual period: 11/20/23 Physical Exam 2 Narrative: EXAM NARRATIVE: Constitutional: the patient appears well nourished and of normal development. Vital signs as documented. No acute distress at present. Alert and oriented-to person, place, time and situation. Head, eyes, ears, nose, mouth, throat: Normocephalic, atraumatic. Pupils-equal, round, reactive to light. No scleral icterus. Normal-appearing external ears. Normal appearing nasal turbinates, no drainage. No obvious oral lesions, posterior oropharynx without erythema or exudates. Neck: Supple, trachea is midline, no lymphadenopathy, no jugular venous distension, thyromegaly, or carotid bruits. Carotid upstrokes are brisk bilaterally. Lungs: clear to auscultation to all lung eldridge. Symmetrical rise and fall of chest, no obvious signs of increased work of breathing at present. Cardiac: Regular rate and rhythm, positive S1, S2. No murmurs, rubs or gallops that I can appreciate Abdomen: Soft, non-tender to palpation, normal active bowel sounds to all quadrants. No palpable masses, no organomegaly and abdominal bruits. Extremities: 2+ pulses in the upper extremities that are equal bilaterally, 2+ pulses in the lower extremities that are equal bilaterally. Non-edematous. Moves all extremities well, sensation to all extremities are noted. Skin: Warm, dry, intact. Course 2 Vital Signs: Vital signs: Vital Signs Temperature 98.0 F 12/13/23 01:49 Pulse Rate 87 12/13/23 01:49 Respiratory Rate 16 12/13/23 01:49 Blood Pressure 143/84 12/13/23 01:49 Pulse Oximetry 97 12/13/23 01:49 Oxygen Delivery Me thod Room Air 12/13/23 01:49 MDM - Chest Pain Medical Decision Making Physical exam completed and documented, I will obtain serial cardiac enzymes, serial twelve-lead EKGs, chest x-ray, CBC, CMP, urinalysis, B-type natriuretic peptide, PT/PTT/INR, and a chest x-ray. I have reviewed previous and pertinent medical records for assist in obtaining beneficial medical information to improved the care and treatment of the patient. I discussed the laboratory findings as well as recommended follow-up with her PCP for additional evaluation treatment and care. Patient was discharged home in stable condition and in no acute distress. I did provide the patient a GI cocktail and reevaluation demonstrates complete resolution of her discomfort. Medical Records I reviewed the patient's medical records. Lab Data I reviewed the patient's lab results. 12/13/23 02:11 12/13/23 02:11 Laboratory Results WBC 8.21 10^3/uL (3.29-11.43) 12/13/23 02:11 RBC 6.01 10^6/uL (3.85-5.65) H 12/13/23 02:11 Hgb 16.40 g/dL (11.27-16.99) 12/13/23 02:11 Hct 46.1 % (36-47) 12/13/23 02:11 MCV 76.7 fl (85-98) L 12/13/23 02:11 MCH 27.3 pg (27-33) 12/13/23 02:11 MCHC 35.6 g/dL (30-55) 12/13/23 02:11 RDW 13.0 % (12.1-15.1) 12/13/23 02:11 Plt Count 306 10^3/cmm (157-399) 12/13/23 02:11 MPV 9.4 fL (7.4-10.4) 12/13/23 02:11 Neut % (Auto) 53.9 % 12/13/23 02:11 Lymph % (Auto) 36.5 % 12/13/23 02:11 Fisher % (Auto) 5.4 % 12/13/23 02:11 Eos % (Auto) 3.3 % 12/13/23 02:11 Baso % (Auto) 0.5 % 12/13/23 02:11 Neut # (Auto) 4.43 10^3/uL (1.8-7.7) 12/13/23 02:11 Lymph # (Auto) 3.0 10^3/uL (0.8-4.8) 12/13/23 02:11 Fisher # (Auto) 0.4 10^3/uL (0.2-0.9) 12/13/23 02:11 Eos # (Auto) 0.3 10^3/uL (0.0-0.8) 12/13/23 02:11 Baso # (Auto) 0.0 10^3/uL (0.0-0.1) 12/13/23 02:11 Nucleated RBC % (auto) 0 % 12/13/23 02:11 Nucleated RBCs # 0.0 /100WBC 12/13/23 02:11 Sodium 135 mmol/L (136-145) L 12/13/23 02:11 Potassium 3.9 mmol/L (3.5-5.1) 12/13/23 02:11 Chloride 103 mmol/L (98-107) 12/13/23 02:11 Carbon Dioxide 21 mmol/L (22-29) L 12/13/23 02:11 Anion Gap 14.9 (5-19) 12/13/23 02:11 BUN 10 mg/dL (6-20) 12/13/23 02:11 Creatinine 0.4 mg/dL (0.5-0.9) L 12/13/23 02:11 GFR Calculation 180.6 mL/min (90-130) H 12/13/23 02:11 Glucose 340 mg/dL (65-115) H 12/13/23 02:11 Calculated Osmolality 292 mOsm/kg (285-295) 12/13/23 02:11 Calcium 9.0 mg/dL (8.5-10.5) 12/13/23 02:11 Total Bilirubin 0.3 mg/dL (0.15-1.2) 12/13/23 02:11 AST 13 U/L (0-32) 12/13/23 02:11 ALT 18 U/L (0-33) 12/13/23 02:11 Alkaline Phosphatase 132 U/L (35-105) H 12/13/23 02:11 Troponin T Baseline < 6 ng/L (0-10) 12/13/23 02:11 Total Protein 6.9 g/dL (6.6-8.7) 12/13/23 02:11 Albumin 4.3 g/dL (3.5-5.2) 12/13/23 02:11 Globulin 2.6 g/dL (1.3-4.6) 12/13/23 02:11 All radiology interpretation(s) finalized by discharge EKG Data EKG 1: Interpretation: Twelve-lead EKG obtained at 0 115 reviewed at 0 155 demonstrates sinus rhythm, ventricular rate 90 bpm, IL interval 155, QRS duration 87, QT 344, QTc [address] elevation or depression to demonstrate acute ischemia or infarction at present. Discharge Plan Discharge Patient Disposition: Home Clinical Impression: Chest pain due to GERD Condition: Stable Prescriptions: No Action (DME) Hinge Knee brace See Rx Instructions .Route .MEDSUPPLY Qty: 1 0RF Rx Instructions: As directed albuterol sulfate 90 mcg/actuation HFA aerosol inhaler 2 inh INHALATION Q4H PRN (Reason: shortness of breath or wheezing) Qty: 6.7 1RF ibuprofen 800 mg tablet 800 mg PO Q8H PRN (Reason: pain) Qty: 21 0RF tizanidine 4 mg capsule 4 mg PO Q8H PRN (Reason: muscle spasticity) Qty: 20 0RF Discharge Orders: Discharge ED (Routine); Ordered 12/13/23 Ordered By: Richard Medina Referrals: Hosea Molina MD [Primary Care Provider] - Discharge Diet: Usual diet Discharge Activity: Resume usual activity Patient Instructions: Opioid Safety, Pain Management Activity Restrictions/Additional Instructions: Activity Restrictions/Additional Instructions: Thank you for choosing [facility] for your healthcare needs today. Please realize that you were seen in the Emergency Department and that we are providing you with an emergency medical screening exam and this may not be a complete and all inclusive of all the testing and or medical work-up that you may need to determine your ailment or severity of your illness. It is very important that you follow-up as instructed with your Primary care provider or Specialist for additional evaluation and to discuss your medical treatment plan. 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
[2023-12-13 02:43] LABS: Troponin(5th) Baseline < 6 ng/L (0-10)
[2023-12-13 02:46] LABS: Alanine Aminotransferase 18 U/L (0-33); Albumin Level 4.3 g/dL (3.5-5.2); Alkaline Phosphatase 132 U/L (35-105); Anion Gap 14.9 (5-19); Aspartate Amino Transferase 13 U/L (0-32); Blood Urea Nitrogen 10 mg/dL (6-20); Carbon Dioxide 21 mmol/L (22-29); Chloride 103 mmol/L (98-107); Creatinine Clr Calc Pharmacy 221.4702; Globulin 2.6 g/dL (1.3-4.6); Glomerular Filtration Rate 180.6 mL/min (90-130); Glucose 340 mg/dL (65-115); Osmolality Calculated 292 mOsm/kg (285-295); Potassium 3.9 mmol/L (3.5-5.1); Sodium 135 mmol/L (136-145); Total Bilirubin 0.3 mg/dL (0.15-1.2); Total Protein 6.9 g/dL (6.6-8.7)
[2023-12-13] MEDS: lidocaine 2% viscous 15 ML, aluminum-mag hydrox-simethicon 30 ML, sucralfate oral liq 1 GM PO (03:01)
== END 2023-12-13 03:42 | disposition home or self-care (01) ==
PROVIDERS: Emergency Provider Internal Medicine; PCP Family Medicine
DX: K21.9 Gastro-esophageal reflux disease without esophagitis (principal); R07.89 Other chest pain; E11.9 Type 2 diabetes mellitus without complications; Z72.0 Tobacco use
CPT/HCPCS: 71045; 80053; 84484; 85025; 93005; 99285